=== PATIENT | female | born 1965 | race Caucasian/White ===

== ENCOUNTER 2017-04-15 16:16 | Observation (INO) | payer MEDICAID ==
[2017-04-15] MEDS ORDERED: Sodium Chloride 0.9% 2.5 ML Syringe FLUSH PRN (16:23)
[2017-04-15] MEDS ORDERED: Aspirin 81 MG Tab.Chew PO ONE (16:23)
[2017-04-15] MEDS ORDERED: Sodium Chloride 0.9% 10 ML Syringe FLUSH PRN (16:23)
--- NOTE | 2017-04-15 16:26 | EDM.PDOC ---
ED HPI GENERAL MEDICAL PROBLEM - General Chief Complaint: Chest Pain Stated Complaint: PT HAS CHEST PAINS Time Seen by Provider: 04/15/17 16:18 Source of Information: Reports: Patient History Limitations: Reports: No Limitations - History of Present Illness INITIAL COMMENTS - FREE TEXT/NARRATIVE: History of present illness: [] Patient was working at [employer] when she started having substernal chest pain around noon. She states the pain was nonradiating, and she had mild shortness of breath with it. She denies any dizziness, sweating, nausea, vomiting or abdominal pain. Patient did not take anything for pain but kept working. She states the pain has been continuous has not let up since noon. Review of systems: As per history of present illness and below otherwise all systems reviewed and negative. Past medical history: As per history of present illness and as reviewed below otherwise noncontributory. Surgical history: As per history of present illness and as reviewed below otherwise noncontributory. Social history: No reported history of drug or alcohol abuse. Family history: As per history of present illness and as reviewed below otherwise noncontributory. Physical exam: General: Well developed, well nourished in NAD HEENT: Atraumatic, normocephalic, pupils reactive, negative for conjunctival pallor or scleral icterus, mucous membranes moist, throat clear, neck supple, nontender, trachea midline. Lungs: Clear to auscultation, breath sounds equal bilaterally, chest nontender. Heart: S1S2, regular, negative for clicks, rubs, or JVD. Abdomen: Soft, nondistended, nontender. Negative for masses or hepatosplenomegaly. Negative for costovertebral tenderness. Pelvis: Stable nontender. Genitourinary: Deferred. Rectal: Deferred. Extremities: Atraumatic, negative for cords or calf pain. Neurovascular unremarkable. Neuro: Awake, alert, oriented. Cranial nerves II through XII unremarkable. Cerebellum unremarkable. Motor and sensory unremarkable throughout. Exam nonfocal. Diagnostics: [] Labs EKG and x-rays were checked no sign of acute DC, chest x-ray shows no signs of pneumonia, free air, masses. D-dimer and BNP are also negative which makes E. or CHF less likely. Therapeutics: [] Patient was given aspirin, nitroglycerin without relief of her chest pain. She was given morphine and her pain decreased however she had allergic reaction therefore it was stopped. She was given some Ativan for her anxiety and Pepcid for potential GI causes of her chest pain. She is also given Lopressor since she was hypotensive and tachycardic. Impression: [] Chest pain unknown etiology, Plan: [] Discuss his case with Dr. Carrillo, who also spoke to Dr. Bell cardiology, and they're both comfortable admitting her here in observing her for rule out and further treatment. Definitive disposition and diagnosis as appropriate pending reevaluation and review of above. Chest Pain Score (Numeric/FACES): 7 - Related Data Allergies Allergy/AdvReac Type Severity Reaction Status Date / Time No Known Allergies Allergy Verified 10/24/16 11:00 Home Meds: Home Meds amLODIPine [Norvasc] 5 mg PO DAILY 03/19/14 [History] Levothyroxine [Synthroid] 88 mcg PO ACBREAKFAST 10/24/16 [History] Levothyroxine [Synthroid] 100 mcg PO ACBREAKFAST 10/24/16 [History] Nitroglycerin [IJP: Nitroglycerin] 1 tab SL ASDIRECTED PRN 10/24/16 [History] atorvaSTATin [Lipitor] 10 mg PO BEDTIME 10/24/16 [History] Past Medical History - Past Health History Medical/Surgical History: Denies Medical/Surgical History Cardiovascular History: Reports: 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: - Past Surgical History Female Surgical History: Reports: Hysterectomy Social & Family History - Family History Family Medical History: Noncontributory - Tobacco Use Smoking Status *Q: Current Every Day Smoker Years of Tobacco use: 20 Packs/Tins Daily: 0.5 Used Tobacco, but Quit: No Second Hand Smoke Exposure: Yes - Caffeine Use Caffeine Use: Reports: None - Alcohol Use Days Per Week of Alcohol Use: 0 Number of Drinks Per Day: 0 Total Drinks Per Week: 0 - Recreational Drug Use Recreational Drug Use: No Drug Use in Last 12 Months: No ED ROS GENERAL - Review of Systems Review Of Systems: See Below (See history of present illness) ED EXAM, GENERAL - Physical Exam Exam: See Below (See history of present illness) Course - Vital Signs Last Recorded V/S: Last Vital Signs Temp 36.6 C 04/15/17 17:39 Pulse 112 H 05/15/17 18:12 Resp 16 04/15/17 17:39 BP 176/103 H 04/15/17 18:12 Pulse Ox 95 04/15/17 17:39 - Orders/Labs/Meds Orders: Active Orders 24 hr Category Date Time Status Patient Status [ADT] Stat ADT 04/15/17 18:24 Active EKG Documentation Completion [RC] STAT Care 04/15/17 16:22 Active Chest 1V Frontal [CR] Stat Exams 04/15/17 16:23 Taken Sodium Chloride 0.9% [Saline Flush] Med 04/15/17 16:23 Active 10 ml FLUSH ASDIRECTED PRN Sodium Chloride 0.9% [Saline Flush] Med 04/15/17 16:23 Active 2.5 ml FLUSH ASDIRECTED PRN Peripheral IV Insertion Adult [OM.PC] Stat Oth 04/15/17 16:23 Ordered Medication Orders Sodium Chloride (Saline Flush) 10 ml FLUSH ASDIRECTED PRN PRN Reason: Keep Vein Open Sodium Chloride (Saline Flush) 2.5 ml FLUSH ASDIRECTED PRN PRN Reason: Keep Vein Open Labs: Laboratory Tests 04/15/17 04/15/17 04/15/17 Range/Units 16:33 16:33 16:33 WBC 9.24 (4.0-11.0) K/uL RBC 4.50 (4.30-5.90) M/uL Hgb 14.3 (12.0-16.0) g/dL Hct 42.3 (36.0-46.0) % MCV 94.0 (80.0-98.0) fL MCH 31.8 (27.0-32.0) pg MCHC 33.8 (31.0-37.0) g/dL RDW Std Deviation 48.6 (28.0-62.0) fl RDW Coeff of Garrison 14 (11.0-15.0) % Plt Count 224 (150-400) K/uL MPV 10.00 (7.40-12.00) fL Neut % (Auto) 40.9 L (48.0-80.0) % Lymph % (Auto) 50.0 H (16.0-40.0) % [place] % (Auto) 7.8 (0.0-15.0) % Eos % (Auto) 1.0 (0.0-7.0) % Baso % (Auto) 0.3 (0.0-1.5) % Neut # (Auto) 3.8 (1.4-5.7) K/uL Lymph # (Auto) 4.6 H (0.6-2.4) K/uL [place] # (Auto) 0.7 (0.0-0.8) K/uL Eos # (Auto) 0.1 (0.0-0.7) K/uL Baso # (Auto) 0.0 (0.0-0.1) K/uL Nucleated RBC % 0.0 /100WBC Nucleated RBCs # 0 K/uL D-Dimer, Quantitative (0.0-0.52) mg/LFEU Sodium 139 (136-146) mmol/L Potassium 4.0 (3.5-5.1) mmol/L Chloride 107 (98-110) mmol/L Carbon Dioxide 18 L (21-31) mmol/L BUN 16 (6.0-23.0) mg/dL Creatinine 0.9 (0.6-1.5) mg/dL Est Cr Clr Drug Dosing 61.71 mL/min Estimated GFR (MDRD) > 60.0 ml/min Glucose 104 (60-110) mg/dL Calcium 9.6 (8.8-10.8) mg/dL Total Bilirubin 0.5 (0.1-1.5) mg/dL AST 21 (5-40) IU/L ALT 25 (8-54) IU/L Alkaline Phosphatase 55 (40-150) Troponin I < 0.10 (0.0-0.29) NG/ML B-Natriuretic Peptide (<100) PG/ML Total Protein 8.0 (6.0-8.0) g/dL Albumin 4.8 (3.5-5.0) g/dL Globulin 3.2 (2.0-3.5) g/dL Albumin/Globulin Ratio 1.5 (1.3-2.8) Lipase 72 (7-80) U/L 04/15/17 04/15/17 Range/Units 16:33 16:33 WBC (4.0-11.0) K/uL RBC (4.30-5.90) M/uL Hgb (12.0-16.0) g/dL Hct (36.0-46.0) % MCV (80.0-98.0) fL MCH (27.0-32.0) pg MCHC (31.0-37.0) g/dL RDW Std Deviation (28.0-62.0) fl RDW Coeff of Garrison (11.0-15.0) % Plt Count (150-400) K/uL MPV (7.40-12.00) fL Neut % (Auto) (48.0-80.0) % Lymph % (Auto) (16.0-40.0) % [place] % (Auto) (0.0-15.0) % Eos % (Auto) (0.0-7.0) % Baso % (Auto) (0.0-1.5) % Neut # (Auto) (1.4-5.7) K/uL Lymph # (Auto) (0.6-2.4) K/uL [place] # (Auto) (0.0-0.8) K/uL Eos # (Auto) (0.0-0.7) K/uL Baso # (Auto) (0.0-0.1) K/uL Nucleated RBC % /100WBC Nucleated RBCs # K/uL D-Dimer, Quantitative 0.29 (0.0-0.52) mg/LFEU Sodium (136-146) mmol/L Potassium (3.5-5.1) mmol/L Chloride (98-110) mmol/L Carbon Dioxide (21-31) mmol/L BUN (6.0-23.0) mg/dL Creatinine (0.6-1.5) mg/dL Est Cr Clr Drug Dosing mL/min Estimated GFR (MDRD) ml/min Glucose (60-110) mg/dL Calcium (8.8-10.8) mg/dL Total Bilirubin (0.1-1.5) mg/dL AST (5-40) IU/L ALT (8-54) IU/L Alkaline Phosphatase (40-150) Troponin I (0.0-0.29) NG/ML B-Natriuretic Peptide < 15 (<100) PG/ML Total Protein (6.0-8.0) g/dL Albumin (3.5-5.0) g/dL Globulin (2.0-3.5) g/dL Albumin/Globulin Ratio (1.3-2.8) Lipase (7-80) U/L Meds: Medications Generic Name Dose Route Start Last Admin Trade Name Sagrario PRN Reason Stop Dose Admin Sodium Chloride 10 ml 04/15/17 16:23 Saline Flush FLUSH ASDIRECTED PRN Keep Vein Open Sodium Chloride 2.5 ml 04/15/17 16:23 Saline Flush FLUSH ASDIRECTED PRN Keep Vein Open Discontinued Medications Generic Name Dose Route Start Last Admin Trade Name Sagrario PRN Reason Stop Dose Admin Aspirin 324 mg 04/15/17 16:23 04/15/17 16:45 Aspirin PO 04/15/17 16:24 324 mg ONETIME ONE Administration Al Hydroxide/Mg Hydroxide 15 0 ml 04/15/17 17:45 04/15/17 18:18 ml/ Lidocaine HCl 5 ml PO 04/15/17 17:46 1 each ONETIME ONE Administration Diphenhydramine HCl Confirm 04/15/17 17:22 04/15/17 17:30 Benadryl Administered 04/15/17 17:23 Not Given Dose 50 mg .ROUTE .STK-MED ONE Famotidine 20 mg 04/15/17 17:16 04/15/17 17:29 Pepcid IVPUSH 04/15/17 17:17 20 mg ONETIME ONE Administration Sodium Chloride 500 mls @ 999 mls/hr 04/15/17 17:17 04/15/17 17:17 Normal Saline IV 04/15/17 17:47 999 mls/hr .Bolus ONE Administration Lorazepam 0.5 mg 04/15/17 17:01 04/15/17 17:06 Ativan IVPUSH 04/15/17 17:02 0.5 mg ONETIME ONE Administration Metoprolol Tartrate 5 mg 04/15/17 16:30 04/15/17 16:55 Lopressor IVPUSH 04/15/17 16:41 Not Given Q5M MINI Metoprolol Tartrate 5 mg 04/15/17 18:12 04/15/17 18:12 Lopressor IVPUSH 04/15/17 18:13 5 mg ONETIME ONE Administration Morphine Sulfate 2 mg 04/15/17 17:01 04/15/17 17:12 Morphine IVPUSH 04/15/17 17:02 2 mg ONETIME ONE Administration Nitroglycerin 0.4 mg 04/15/17 16:23 04/15/17 17:01 Nitrostat SL 04/15/17 16:34 0.4 mg Q5M PRN Administration Chest Pain Departure - Departure Time of Disposition: 18:29 Disposition: Admitted As Inpatient 64 Condition: good Clinical Impression: Uncontrolled hypertension Chest pain Qualifiers: Chest pain type: unspecified Qualified Code(s): R07.9 - Chest pain, unspecified Forms: ED Department Discharge - My Orders Last 24 Hours: My Active Orders 04/15/17 16:22 EKG Documentation Completion [RC] STAT 04/15/17 16:23 Chest 1V Frontal [CR] Stat Sodium Chloride 0.9% [Saline Flush] 10 ml FLUSH ASDIRECTED PRN Sodium Chloride 0.9% [Saline Flush] 2.5 ml FLUSH ASDIRECTED PRN Peripheral IV Insertion Adult [OM.PC] Stat 04/15/17 18:24 Patient Status [ADT] Stat - Assessment/Plan Last 24 Hours: My Active Orders 04/15/17 16:22 EKG Documentation Completion [RC] STAT 04/15/17 16:23 Chest 1V Frontal [CR] Stat Sodium Chloride 0.9% [Saline Flush] 10 ml FLUSH ASDIRECTED PRN Sodium Chloride 0.9% [Saline Flush] 2.5 ml FLUSH ASDIRECTED PRN Peripheral IV Insertion Adult [OM.PC] Stat 04/15/17 18:24 Patient Status [ADT] Stat
[2017-04-15] MEDS: Nitroglycerin 0.4 MG Tab.SL SL PRN ×3 (16:45→17:01)
[2017-04-15] MEDS: Metoprolol Tartrate 5 MG/5 ML SDV IVPUSH SCH ×2 (16:51→16:55)
[2017-04-15] MEDS ORDERED: LORazepam 2 MG/ML MDV IVPUSH ONE (17:01)
[2017-04-15] MEDS ORDERED: Morphine 2 MG/ML Syringe IVPUSH ONE (17:01)
[2017-04-15 17:03] LABS: CHLORIDE,CL 107 mmol/L (98-110); SODIUM,NA 139 mmol/L (136-146)
[2017-04-15] MEDS ORDERED: Famotidine 20 MG/2 ML SDV IVPUSH ONE (17:16)
[2017-04-15] MEDS ORDERED: Sodium Chloride 0.9% 500 ML IV ONE (17:17)
[2017-04-15] MEDS ORDERED: diphenhydrAMINE 50 MG/ML SDV ONE (17:22)
[2017-04-15] MEDS ORDERED: Alum Hydrox/Mag Hydrox/Simeth 15 ML, Lidocaine 2% 5 ML PO ONE ×2 (17:45)
[2017-04-15] MEDS ORDERED: Metoprolol Tartrate 5 MG/5 ML SDV IVPUSH ONE (18:12)
--- NOTE | 2017-04-15 18:47 | PCM.HP ---
H&P History of Present Illness - General Date of Service: 04/15/17 Admit Problem/Dx: Admission Diagnosis/Problem Admission Diagnosis/Problem Chest pain Source of Information: Patient, Provider - History of Present Illness Initial Comments - Free Text/Narative: She was seen in the ED today for chest pain. 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 She felt right sided chest pain. It is worse with coughing. No known prior history of cardiac disease but a known history of HTN. She received aspirin in the ED. She did not have improvement with nitroglycerin. She had improvement with morphine but had itching with morphine. Her pain is now 2/10. Chest Pain Score (Numeric/FACES): 7 - Related Data Allergies/Adverse Reactions: Allergies Allergy/AdvReac Type Severity Reaction Status Date / Time No Known Allergies Allergy Verified 10/24/16 11:00 Home Medications: Home Meds amLODIPine [Norvasc] 5 mg PO DAILY 03/19/14 [History] Levothyroxine [Synthroid] 88 mcg PO ACBREAKFAST 10/24/16 [History] Levothyroxine [Synthroid] 100 mcg PO ACBREAKFAST 10/24/16 [History] Nitroglycerin [IJP: Nitroglycerin] 1 tab SL ASDIRECTED PRN 10/24/16 [History] atorvaSTATin [Lipitor] 10 mg PO BEDTIME 10/24/16 [History] Past Medical History - Past Health History Medical/Surgical History: Denies Medical/Surgical History Cardiovascular History: Reports: Hypertension. 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: Musculoskeletal History: Denies: Muscular Dystrophy, RA Neurological History: Denies: CVA, MS, Seizure Endocrine/Metabolic History: Denies: Diabetes, Type I, Diabetes, Type II Hematologic History: Denies: Anticoagulation Therapy, Bleeding Disorder Immunologic History: Denies: AIDS, HIV, Solid Organ Transplant Oncologic (Cancer) History: Reports: None - Past Surgical History Female Surgical History: Reports: Hysterectomy Social & Family History - Family History Family Medical History: Noncontributory - Tobacco Use Smoking Status *Q: Current Every Day Smoker Years of Tobacco use: 20 Packs/Tins Daily: 0.5 Used Tobacco, but Quit: No Second Hand Smoke Exposure: Yes - Caffeine Use Caffeine Use: Reports: None - Alcohol Use Days Per Week of Alcohol Use: 0 Number of Drinks Per Day: 0 Total Drinks Per Week: 0 Alcohol Use Comment: she drinks about three times per month - Recreational Drug Use Recreational Drug Use: No Drug Use in Last 12 Months: No H&P Review of Systems - Review of Systems: Review Of Systems: See Below General: Denies: Fever, Chills HEENT: Denies: Eye Pain, Sore Throat Pulmonary: Reports: Cough (chronic morning cough). Denies: Shortness of Breath Cardiovascular: Reports: Chest Pain. Denies: Palpitations, Edema Gastrointestinal: Reports: Other (no "heart burn" recently). Denies: Abdominal Pain, Anorexia, Black Stool, Bloody Stool, Hematemesis, Vomiting Genitourinary: Denies: Dysuria, Frequency, Burning, Hematuria Skin: Denies: Cyanosis, Jaundice Psychiatric: Denies: Confusion Neurological: Denies: Confusion Exam - Exam Exam: See Below - Vital Signs Vital Signs: Last Vital Signs Temp 97.8 F 04/15/17 17:39 Pulse 82 04/15/17 18:30 Resp 16 04/15/17 18:30 BP 157/92 H 04/15/17 18:30 Pulse Ox 95 04/15/17 18:30 Weight: 79.379 kg - Exam General: Alert, Oriented, Cooperative HEENT: EOMI, Mucosa Moist & Robin[place] Neck: Supple, Trachea Midline Lungs: Clear to Auscultation, Normal Respiratory Effort. No: Crackles, Rales, Rhonchi, Rub, Stridor, Wheezing Cardiovascular: Regular Rate, Regular Rhythm Abdomen: Soft. No: Tenderness (Female) Exam: Deferred Rectal (Female) Exam: Deferred Extremities: No: Edema Neurological: Cranial Nerves Intact, Normal Speech Neuro Extensive - Motor, Sensory, Reflexes: No: Facial palsy (L), Facial Palsy ( R), Hemeplagia (R), Hemeplagia (L) Psychiatric: Alert. No: Depressed, Agitated, Hallucinations, Withdrawal Symptoms - Patient Data Result Diagrams: 04/15/17 16:33 04/15/17 16:33 David Results last 24 hrs: EKG: NSR with ST depression anterior chest leads just less than 1 mm Hg. CXR: NAD *Q Meaningful Use (ADM) - VTE *Q VTE Criteria *Q: - Stroke *Q Stroke Criteria *Q: - AMI *Q AMI Criteria *Q: - Problem List (1) Hypertension SNOMED Code(s): 06772008 ICD Code: I10 - ESSENTIAL (PRIMARY) HYPERTENSION Status: Acute Current Visit: Yes (2) Chest pain SNOMED Code(s): 48377289 ICD Code: R07.9 - CHEST PAIN, UNSPECIFIED Status: Acute Current Visit: Yes Qualifiers: Chest pain type: unspecified Qualified Code(s): R07.9 - Chest pain, unspecified Problem List Initiated/Reviewed/Updated: Yes Orders Last 24hrs: Medication Orders Sodium Chloride (Saline Flush) 10 ml FLUSH ASDIRECTED PRN PRN Reason: Keep Vein Open Sodium Chloride (Saline Flush) 2.5 ml FLUSH ASDIRECTED PRN PRN Reason: Keep Vein Open Assessment/Plan Comment:: 04/15/2017 I reviewed her EKG with Dr Monahan, cardiology. He agrees with monitoring in our facility. I discussed the limitations here with the patient and she agrees to stay here realizing that we do not have emergent cardiac catheterization ability here. I suspect that this is chest wall pain. will monitor on observation. telemetry troponin levels EKG in am cardiology consult. Guillaume Carrillo MD
[2017-04-15] MEDS ORDERED: Acetaminophen/HYDROcodone 325-10 MG Tab PO PRN (18:52)
[2017-04-15] MEDS ORDERED: Ondansetron 4 MG Tab.DIS PO PRN (18:52)
[2017-04-15] MEDS ORDERED: Temazepam 15 MG Cap PO PRN (18:52)
[2017-04-15] MEDS ORDERED: Acetaminophen 325 MG Tab PO PRN (18:52)
[2017-04-15] MEDS ORDERED: Bisacodyl 5 MG Tab PO PRN (18:52)
[2017-04-15] MEDS ORDERED: Acetaminophen 500 MG Tab PO PRN (19:12)
[2017-04-15] MEDS: Metoprolol Succinate 50 MG Tab.ER PO SCH (20:10)
[2017-04-15] MEDS ORDERED: atorvaSTATin 10 MG Tab PO SCH (21:00)
[2017-04-16 08:01] VITALS: BP 133/77
[2017-04-16] MEDS ORDERED: Aspirin 81 MG Tab.Chew PO SCH (09:00)
--- NOTE | 2017-04-16 10:13 | CR ---
EXAM DATE: 04/15/17 PATIENT'S AGE: 52 Patient: KRZYSZTOF HUMPHREY Facility: [place], [place] Site . Site : [id number] Study: XRay Chest [id number]/15/2017 5:02:22 PM Ordering Physician: Doctor Mcdonough Final Report: INDICATION: pain, sob CHEST, ONE VIEW An AP radiograph of the chest was performed. Comparison: 10/24/2016. The lungs appear clear and no pleural effusions are identified. The cardiomediastinal silhouette and pulmonary vasculature appear normal, as do the visualized bones. IMPRESSION: No acute intrathoracic abnormality identified. NORMA SANTIZO MD [employer] [facility] [employer] Dictated by: Tim Santizo MD @ 04/15/2017 17:29:22 (Electronic Signature) Report Signed by Proxy. [facility]
[2017-04-16] MEDS: Metoprolol Succinate 50 MG Tab.ER PO SCH (10:49)
--- NOTE | 2017-04-16 12:06 | PCM.DCSUM1 ---
Discharge Summary - Hospital Course Brief History: she was admitted with chest pain. She was noted to have anterior chest wall tenderness. - Discharge Data Discharge Date: 04/16/17 Discharge Disposition: Home, Self-Care 01 Condition: Good - Discharge Diagnosis/Problem(s) (1) Hypertension SNOMED Code(s): 40985093 ICD Code: I10 - ESSENTIAL (PRIMARY) HYPERTENSION Status: Acute Current Visit: Yes (2) Chest pain SNOMED Code(s): 80544641 ICD Code: R07.9 - CHEST PAIN, UNSPECIFIED Status: Acute Current Visit: Yes Qualifiers: Chest pain type: unspecified Qualified Code(s): R07.9 - Chest pain, unspecified - Patient Summary/Data Consults: Consultations 04/15/17 18:52 Consult to Physician [CONS] Routine Hospital Course: initial EKG showed non diagnostic ST depression anterolaterally on the precordial leads. Repeat EKG the morning after admission showed no evidence of ischemia or injury serial troponins were normal Dr. Monahan consulted on patient and agreed with discharge home with outpatient follow up in his clinic. He has also scheduled a nuclear medicine cardiac stress test. She is discharged on her prior home meds and also norco 10/325 1 q 4 hours prn pain #20. I advised regarding risk of sedation, constipation and habit forming. - Discharge Plan Home Medications: Home Meds atorvaSTATin [Lipitor] 10 mg PO BEDTIME 10/24/16 [History] Levothyroxine 125 mcg PO ACBREAKFAST 04/16/17 [History] Nitroglycerin [IJP: Nitroglycerin] 0.4 mg SL ASDIRECTED PRN 04/16/17 [History] amLODIPine Besylate [Amlodipine Besylate] 5 mg PO DAILY 04/16/17 [History] Forms: ED Department Discharge Referrals: PCP,None [Primary Care Provider] - - Patient Data Vitals - Most Recent: Last Vital Signs Temp 98.6 F 04/16/17 08:00 Pulse 73 04/16/17 08:00 Resp 16 04/16/17 08:00 BP 133/77 04/16/17 08:00 Pulse Ox 92 L 04/16/17 08:00 Weight - Most Recent: 75.1 kg I&O - Last 24 hours: Intake & Output 04/15/17 04/16/17 04/16/17 22:59 06:59 14:59 Intake Total 300 Output Total 450 Balance -150 Lab Results - Last 24 hrs: Laboratory Results - last 24 hr 04/15/17 04/16/17 04/16/17 Range/Units 22:47 05:13 05:13 Hemoglobin A1c (0.0-6.0) % Troponin I < 0.10 < 0.10 (0.0-0.29) NG/ML Triglycerides 101 (10-190) mg/dL Cholesterol 191 (131-240) mg/dL LDL Cholesterol, Calc 112 (60-180) mg/dL VLDL Cholesterol 20 (5-55) mg/dL HDL Cholesterol 59 (40-80) mg/dL Cholesterol/HDL Ratio 3.2 L (3.3-6.0) 04/16/17 Range/Units 05:13 Hemoglobin A1c 6.1 H (0.0-6.0) % Troponin I (0.0-0.29) NG/ML Triglycerides (10-190) mg/dL Cholesterol (131-240) mg/dL LDL Cholesterol, Calc (60-180) mg/dL VLDL Cholesterol (5-55) mg/dL HDL Cholesterol (40-80) mg/dL Cholesterol/HDL Ratio (3.3-6.0) Med Orders - Current: Current Medications Acetaminophen (Tylenol Extra Strength) 500 mg PO Q4H PRN PRN Reason: Pain/Fever Hydrocodone Bitart/Acetaminophen ([place] 325-10 Mg) 1 tab PO Q3H PRN PRN Reason: Pain Amlodipine Besylate (Norvasc) 5 mg PO DAILY [facility] Aspirin (Aspirin) 81 mg PO DAILY [facility] Last Admin: 04/16/17 10:49 Dose: 81 mg Atorvastatin Calcium (Lipitor) 10 mg PO BEDTIME [facility] Last Admin: 04/16/17 03:24 Dose: Not Given Bisacodyl (Dulcolax) 5 mg PO DAILY PRN PRN Reason: Constipation Levothyroxine Sodium (Levothyroxine) 125 mcg PO ACBRK [facility] Metoprolol Succinate (Toprol Xl) 50 mg PO DAILY [facility] Last Admin: 04/16/17 10:49 Dose: Not Given Ondansetron HCl (Zofran Odt) 4 mg PO Q4H PRN PRN Reason: nausea, able to take PO Sodium Chloride (Saline Flush) 10 ml FLUSH ASDIRECTED PRN PRN Reason: Keep Vein Open Sodium Chloride (Saline Flush) 2.5 ml FLUSH ASDIRECTED PRN PRN Reason: Keep Vein Open Temazepam (Restoril) 15 mg PO BEDTIME PRN PRN Reason: Sleep Discontinued Medications Aspirin (Aspirin) 324 mg PO ONETIME ONE Stop: 04/15/17 16:24 Last Admin: 04/15/17 16:45 Dose: 324 mg Al Hydroxide/Mg Hydroxide 15 (ml/ Lidocaine HCl 5 ml) 0 ml PO ONETIME ONE Stop: 04/15/17 17:46 Last Admin: 04/15/17 18:18 Dose: 1 each Diphenhydramine HCl (Benadryl) Confirm Administered Dose 50 mg .ROUTE .STK-MED ONE Stop: 04/15/17 17:23 Last Admin: 04/15/17 17:30 Dose: Not Given Famotidine (Pepcid) 20 mg IVPUSH ONETIME ONE Stop: 04/15/17 17:17 Last Admin: 04/15/17 17:29 Dose: 20 mg Sodium Chloride (Normal Saline) 500 mls @ 999 mls/hr IV .Bolus ONE Stop: 04/15/17 17:47 Last Admin: 04/15/17 17:17 Dose: 999 mls/hr Lorazepam (Ativan) 0.5 mg IVPUSH ONETIME ONE Stop: 04/15/17 17:02 Last Admin: 04/15/17 17:06 Dose: 0.5 mg Metoprolol Tartrate (Lopressor) 5 mg IVPUSH Q5M MINI Stop: 04/15/17 16:41 Last Admin: 04/15/17 16:55 Dose: Not Given Metoprolol Tartrate (Lopressor) 5 mg IVPUSH ONETIME ONE Stop: 04/15/17 18:13 Last Admin: 04/15/17 18:12 Dose: 5 mg Morphine Sulfate (Morphine) 2 mg IVPUSH ONETIME ONE Stop: 04/15/17 17:02 Last Admin: 04/15/17 17:12 Dose: 2 mg Nitroglycerin (Nitrostat) 0.4 mg SL Q5M PRN PRN Reason: Chest Pain Stop: 04/15/17 16:34 Last Admin: 04/15/17 17:01 Dose: 0.4 mg *Q Meaningful Use (DIS) - VTE *Q VTE Criteria *Q: - Stroke *Q Stroke Criteria *Q: - AMI *Q AMI Criteria *Q:
--- NOTE | 2017-04-16 12:27 | CONS ---
DATE OF CONSULTATION: 04/16/2017 DATE OF : 1965 PRIMARY CARE PHYSICIAN: None PCP REASON FOR CONSULTATION: EKG changes, chest pain. HISTORY OF PRESENT ILLNESS: This is a 52-year-old female with history of hypertension, hypothyroidism, and dyslipidemia as well as a prediabetes presented to the hospital at this time because of the chest pain on the right side. 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 It was feeling like heaviness on that side and felt like lightheaded. No shortness of breath, no sweating, and no clamminess. She never experienced before and it lasted for 12:00 to 4:00 p.m. She was given nitroglycerin x3 as well as Ativan x1, GI cocktail, and morphine. She stated that Ativan does help as well as a nitroglycerin. She had a treadmill test before 2013. At that time, she was having the foot surgery and it seemed to be negative for any ischemia. Otherwise, she denies any fever, nausea, vomiting, abdominal pain, focal weakness, numbness, or weight loss. REVIEW OF SYSTEMS: A 12-point review of systems has been negative except as indicated in HPI. PAST MEDICAL HISTORY: Including hypertension, hyperlipidemia, prediabetes, active smoker. SOCIAL HISTORY: She is active smoker 1/2 pack per day, occasional drinking, no IV drug use. FAMILY HISTORY: Mother had a history of cancer. No history of CAD. ALLERGIES: She has no known drug allergies. MEDICATIONS: Currently, she is on Toprol-XL 50 mg once a day, Lipitor 10 mg once a day, aspirin 81 mg once a day. Home medications include amlodipine 5 mg once a day, levothyroxine 125 mcg once a day, and atorvastatin 10 mg once a day. PHYSICAL EXAMINATION: VITAL SIGNS: Blood pressure initially 144/84; going up to 176/103, currently 155/99; heart rate of 73; temperature 36.7; O2 saturation 94% on room air, respiration rate is 18. HEENT: No pallor. No jaundice. NECK: No JVD. HEART: Normal S1, S2. No murmur. CHEST: Her chest wall is tender on the right-sided chest wall and reproducible for pain. LUNGS: Clear. ABDOMEN: Soft, nontender. Bowel sounds present. No hepatosplenomegaly. EXTREMITIES: No edema. LABORATORY INVESTIGATION: CBC showed WBC of 9, hematocrit 42, platelet 224. D-dimer is negative. Sodium 139, potassium 4, chloride 107, bicarb 18, BUN 16, creatinine 0.9. Troponin is negative x3. BNP is negative. Her fasting lipid, triglyceride 101, total cholesterol 191, LDL 112, HDL 59, lipase 72. EKG in October 2016 showed sinus rhythm with ST abnormality in V3 to V6 and also EKG on April 15, 2017 showed sinus tachycardia with ST abnormality in V3 to V6 and EKG on April 16, 2017 is sinus rhythm, no ST changes. ASSESSMENT AND PLAN: This is a 52-year-old female with history of hypertension, hyperlipidemia, prediabetes, active smoking with chest pain. This seems to be very atypical for cardiac angina with a reproducible pain and with some EKG changes. When I compared the EKG changes seemed to be she has preexisting ST abnormalities in the past and it seemed to be dynamic where it could be from LV strain from her LVH; however, it was disappeared for the ST abnormality on the current. She also had a stress test done 3 years ago. There seemed to be no evidence of ischemia and troponin has been negative x3. So far, she ruled out for NV and I believe she can be discharged home as well as she would need to be scheduled for outpatient stress test especially exercise nuclear test and I will also order an echocardiogram. EDIS / JEB /[id number]
[2017-04-17] MEDS ORDERED: Levothyroxine 125 MCG Tab PO SCH (11:00)
[2017-04-17] MEDS ORDERED: amLODIPine 5 MG Tab PO SCH (11:00)
--- NOTE | 2017-04-17 13:45 | ECHO ---
EXAM DATE: 04/15/17 PATIENT'S AGE: 52 The echocardiogram report can be seen in this patient's EMR (Electronic Medical Record) in the Reports section. MARTHA
== END 2017-04-16 12:45 | disposition home or self-care (01) ==
LOC: MW.ED 16:16 → MW.ICU 18:24
PROVIDERS: ADMIT Family Medicine; ATTEND Family Medicine
DX: R07.9 Chest pain, unspecified (principal); R06.02 Shortness of breath; I10 Essential (primary) hypertension; F17.210 Nicotine dependence, cigarettes, uncomplicated; E78.5 Hyperlipidemia, unspecified
CPT/HCPCS: 36415; 71010; 80053; 80061; 83036; 83690; 83880; 84484; 85025; 85379; 93005; 93306; 96361; 96374; 96375; 99285; A9270; G0378; J2060; J2270; J7040

== ENCOUNTER 2017-10-31 15:49 | Emergency (ER) | payer SELFPAY ==
[2017-10-31] MEDS ORDERED: Sodium Chloride 0.9% 1,000 ML IV ONE (16:14)
[2017-10-31] MEDS ORDERED: Sodium Chloride 0.9% 2.5 ML Syringe FLUSH PRN (16:14)
[2017-10-31] MEDS ORDERED: Ondansetron 4 MG/2 ML SDV IVPUSH ONE (16:14)
[2017-10-31] MEDS ORDERED: Sodium Chloride 0.9% 10 ML Syringe FLUSH PRN (16:14)
--- NOTE | 2017-10-31 16:16 | EDM.PDOC ---
ED HPI GENERAL MEDICAL PROBLEM - General Chief Complaint: Respiratory Problem Stated Complaint: UNKNOWN Time Seen by Provider: 10/31/17 16:14 Source of Information: Reports: Patient History Limitations: Reports: No Limitations - History of Present Illness INITIAL COMMENTS - FREE TEXT/NARRATIVE: HISTORY AND PHYSICAL: []52-year-old female presents with three-day history of cough cold- like symptoms History of Present Illness: [] Review of Systems: As per history of present illness and below otherwise all systems reviewed and negative. Past medical history: As per history of present illness and as reviewed below otherwise noncontributory. Surgical history: As per history of present illness and as reviewed below otherwise noncontributory. Social history: No reported history of drug or alcohol abuse. Family history: As per history of present illness and as reviewed below otherwise noncontributory. Physical exam: Patient's alert and oriented answering questions appropriately has a stomach cough during examination. She is no shortness of breath with speaking HEENT: Atraumatic, normocehpalic, pupils reactive, negative for conjunctival pallor or scleral icterus, mucous membranes moist, throat clear, neck supple, nontender, trachea midline. Lungs: Clear to auscultation, breath sounds equal bilaterally, chest non tender. Shallow breath sounds Heart: S1S2, regular, negative for clicks, rubs, or JVD. Abdomen: Soft, nondistended, nontender. Negative for masses or hepatossplenmegaly. Negative for costovertebral tenderness. Pelvis: Stable nontender. Genitourinary: Deferred. Rectal: Deferred Extremities: Atraumatic, negative for cords or calf pain. Neurovascular unremarkable. Neuro: Awake, alert, oriented. Cranial nerves II through XII unremarkable. Cerebellum unremarkable. Motor and sensory unremarkable throughout. Exam nonfocal. Diagnostics: [CBC CMP chest x-ray influenza] Therapeutics: []1 L normal saline Zofran Impression: [] Plan: [] Definitive disposition and diagnosis as appropriate pending reevaluation and review of above. Onset: Gradual Duration: Day(s): (3) Location: Reports: Generalized Quality: Reports: Ache, Same as Previous Episode Severity: Moderate Chest Pain Score (Numeric/FACES): 7 - Related Data Allergies Allergy/AdvReac Type Severity Reaction Status Date / Time No Known Allergies Allergy Verified 10/24/16 11:00 Home Meds: Home Meds atorvaSTATin [Lipitor] 10 mg PO BEDTIME 10/24/16 [History] Acetaminophen/HYDROcodone [[place] 325-10 MG] 1 tab PO Q3H PRN #20 tablet [Rx] Aspirin 81 mg PO DAILY #100 tab.chew 04/16/17 [Rx] Levothyroxine 125 mcg PO ACBREAKFAST 04/16/17 [History] amLODIPine Besylate [Amlodipine Besylate] 5 mg PO DAILY 04/16/17 [History] Albuterol [Proventil HFA] 6.7 gm INH Q4H #1 inhaler 10/31/17 [Rx] Azithromycin [IJD: Azithromycin] 250 mg PO DAILY #6 tab 10/31/17 [Rx] methylPREDNISolone [Medrol] 4 mg PO ASDIRECTED #1 dosepk 10/31/17 [Rx] Past Medical History - Past Health History Medical/Surgical History: Denies Medical/Surgical History Cardiovascular History: Reports: Hypertension [employer] History: Reports: Endocrine/Metabolic History: Reports: Hypothyroidism Oncologic (Cancer) History: Reports: None - Infectious Disease History Infectious Disease History: Reports: Chicken Pox, Influenza, Measles, Mumps - Past Surgical History Cardiovascular Surgical History: Reports: None Female Surgical History: Reports: Hysterectomy Social & Family History - Family History Family Medical History: Noncontributory OBGYN: Reports: Oncologic: Reports: Cervix - Tobacco Use Smoking Status *Q: Current Every Day Smoker Years of Tobacco use: 30 Packs/Tins Daily: 0.5 Used Tobacco, but Quit: No Second Hand Smoke Exposure: Yes - Caffeine Use Caffeine Use: Reports: Coffee Other Caffeine Use: 3-4 cups/day - Alcohol Use Days Per Week of Alcohol Use: 0 Number of Drinks Per Day: 0 Total Drinks Per Week: 0 - Recreational Drug Use Recreational Drug Use: No Drug Use in Last 12 Months: No ED ROS GENERAL - Review of Systems Review Of Systems: ROS reveals no pertinent complaints other than HPI. ED EXAM, GENERAL - Physical Exam Exam: See Below (see dictation) Course - Vital Signs Last Recorded V/S: Last Vital Signs Temp 37.1 C 10/31/17 16:48 Pulse 89 10/31/17 16:48 Resp 16 10/31/17 16:48 BP 142/82 H 10/31/17 16:48 Pulse Ox 96 10/31/17 16:48 - Orders/Labs/Meds Orders: Active Orders 24 hr Category Date Time Status RT Aerosol Therapy [RC] ASDIRECTED Care 10/31/17 17:30 Ordered Chest 2V [CR] Stat Exams 10/31/17 16:14 Taken Albuterol/Ipratropium [DuoNeb 3.0-0.5 MG/3 ML] Med 10/31/17 17:30 Once 3 ml NEB ONETIME ONE Sodium Chloride 0.9% [Saline Flush] Med 10/31/17 16:14 Active 10 ml FLUSH ASDIRECTED PRN Sodium Chloride 0.9% [Saline Flush] Med 10/31/17 16:14 Active 2.5 ml FLUSH ASDIRECTED PRN methylPREDNISolone Sod Succ [Solu-MEDROL] Med 10/31/17 17:30 Once 125 mg IVPUSH ONETIME ONE Saline Lock Insert [OM.PC] Stat Oth 10/31/17 16:13 Ordered Medication Orders Albuterol/Ipratropium (Duoneb 3.0-0.5 Mg/3 Ml) 3 ml NEB ONETIME ONE Stop: 10/31/17 17:31 Methylprednisolone Sodium Succinate (Solu-Medrol) 125 mg IVPUSH ONETIME ONE Stop: 10/31/17 17:31 Sodium Chloride (Saline Flush) 10 ml FLUSH ASDIRECTED PRN PRN Reason: Keep Vein Open Last Admin: 10/31/17 16:37 Dose: 10 ml Sodium Chloride (Saline Flush) 2.5 ml FLUSH ASDIRECTED PRN PRN Reason: Keep Vein Open Last Admin: 10/31/17 16:38 Dose: 2.5 ml Labs: Laboratory Tests 10/31/17 10/31/17 Range/Units 16:22 16:22 WBC 10.99 (4.0-11.0) K/uL RBC 4.54 (4.30-5.90) M/uL Hgb 14.4 (12.0-16.0) g/dL Hct 42.4 (36.0-46.0) % MCV 93.4 (80.0-98.0) fL MCH 31.7 (27.0-32.0) pg MCHC 34.0 (31.0-37.0) g/dL RDW Std Deviation 48.9 (28.0-62.0) fl RDW Coeff of [place] 14 (11.0-15.0) % Plt Count 239 (150-400) K/uL MPV 10.50 (7.40-12.00) fL Neut % (Auto) 60.7 (48.0-80.0) % Lymph % (Auto) 28.9 (16.0-40.0) % Armstrong % (Auto) 9.0 (0.0-15.0) % Eos % (Auto) 1.1 (0.0-7.0) % Baso % (Auto) 0.3 (0.0-1.5) % Neut # (Auto) 6.7 H (1.4-5.7) K/uL Lymph # (Auto) 3.2 H (0.6-2.4) K/uL Armstrong # (Auto) 1.0 H (0.0-0.8) K/uL Eos # (Auto) 0.1 (0.0-0.7) K/uL Baso # (Auto) 0.0 (0.0-0.1) K/uL Nucleated RBC % 0.0 /100WBC Nucleated RBCs # 0 K/uL Sodium 138 (136-146) mmol/L Potassium 4.1 (3.5-5.1) mmol/L Chloride 106 (98-110) mmol/L Carbon Dioxide 22 (21-31) mmol/L BUN 12 (6.0-23.0) mg/dL Creatinine 0.8 (0.6-1.5) mg/dL Est Cr Clr Drug Dosing TNP Estimated GFR (MDRD) > 60.0 ml/min Glucose 103 (60-110) mg/dL Calcium 9.3 (8.8-10.8) mg/dL Total Bilirubin 0.5 (0.1-1.5) mg/dL AST 25 (5-40) IU/L ALT 34 (8-54) IU/L Alkaline Phosphatase 83 (40-150) Total Protein 7.9 (6.0-8.0) g/dL Albumin 4.3 (3.5-5.0) g/dL Globulin 3.6 H (2.0-3.5) g/dL Albumin/Globulin Ratio 1.2 L (1.3-2.8) Meds: Medications Generic Name Dose Route Start Last Admin Trade Name Freq PRN Reason Stop Dose Admin Albuterol/Ipratropium 3 ml 10/31/17 17:30 Duoneb 3.0-0.5 Mg/3 Ml NEB 10/31/17 17:31 ONETIME ONE Methylprednisolone Sodium Succinate 125 mg 10/31/17 17:30 Solu-Medrol IVPUSH 10/31/17 17:31 ONETIME ONE Sodium Chloride 10 ml 10/31/17 16:14 10/31/17 16:37 Saline Flush FLUSH 10 ml ASDIRECTED PRN Administration Keep Vein Open Sodium Chloride 2.5 ml 10/31/17 16:14 10/31/17 16:38 Saline Flush FLUSH 2.5 ml ASDIRECTED PRN Administration Keep Vein Open Discontinued Medications Generic Name Dose Route Start Last Admin Trade Name Freq PRN Reason Stop Dose Admin Sodium Chloride 1,000 mls @ 999 mls/hr 10/31/17 16:14 10/31/17 16:35 Normal Saline IV 10/31/17 17:14 999 mls/hr STAT ONE Administration Ondansetron HCl 4 mg 10/31/17 16:14 10/31/17 16:35 Zofran IVPUSH 10/31/17 16:15 4 mg ONETIME ONE Administration Departure - Departure Time of Disposition: 17:31 Disposition: Home, Self-Care 01 Condition: Good Clinical Impression: Bronchitis - Discharge Information Prescriptions: Albuterol [Proventil HFA] 6.7 gm INH Q4H #1 inhaler Azithromycin [IJD: Azithromycin] 250 mg PO DAILY #6 tab methylPREDNISolone [Medrol] 4 mg PO ASDIRECTED #1 dosepk Forms: ED Department Discharge Additional Instructions: The following information is given to patients seen in the emergency department who are being discharged to home. This information is to outline your options for follow-up care. We provide all patients seen in our emergency department with a follow-up referral. The need for follow-up, as well as the timing and circumstances, are variable depending upon the specifics of your emergency department visit. If you don't have a primary care physician on staff, we will provide you with a referral. We always advise you to contact your personal physician following an emergency department visit to inform them of the circumstance of the visit and for follow-up with them and/or the need for any referrals to a consulting specialist. The emergency department will also refer you to a specialist when appropriate. This referral assures that you have the opportunity for followup care with a specialist. All of these measure are taken in an effort to provide you with optimal care, which includes your followup. Under all circumstances we always encourage you to contact your private physician who remains a resource for coordinating your care. When calling for followup care, please make the office aware that this follow-up is from your recent emergency room visit. If for any reason you are refused follow-up, please contact the [facility] emergency department at and asked to speak to the emergency department charge nurse. Please follow-up with your primary care provider in the next 2-3 days He was found to have bronchitis while in the emergency department Prescriptions were sent to your pharmacy for #1 Proventil inhaler #2 Medrol Dosepak No. 3 azithromycin - My Orders Last 24 Hours: My Active Orders 10/31/17 16:13 Saline Lock Insert [OM.PC] Stat 10/31/17 16:14 Chest 2V [CR] Stat Sodium Chloride 0.9% [Saline Flush] 10 ml FLUSH ASDIRECTED PRN Sodium Chloride 0.9% [Saline Flush] 2.5 ml FLUSH ASDIRECTED PRN 10/31/17 17:30 RT Aerosol Therapy [RC] ASDIRECTED Albuterol/Ipratropium [DuoNeb 3.0-0.5 MG/3 ML] 3 ml NEB ONETIME ONE methylPREDNISolone Sod Succ [Solu-MEDROL] 125 mg IVPUSH ONETIME ONE - Assessment/Plan Last 24 Hours: My Active Orders 10/31/17 16:13 Saline Lock Insert [OM.PC] Stat 10/31/17 16:14 Chest 2V [CR] Stat Sodium Chloride 0.9% [Saline Flush] 10 ml FLUSH ASDIRECTED PRN Sodium Chloride 0.9% [Saline Flush] 2.5 ml FLUSH ASDIRECTED PRN 10/31/17 17:30 RT Aerosol Therapy [RC] ASDIRECTED Albuterol/Ipratropium [DuoNeb 3.0-0.5 MG/3 ML] 3 ml NEB ONETIME ONE methylPREDNISolone Sod Succ [Solu-MEDROL] 125 mg IVPUSH ONETIME ONE
[2017-10-31 16:48] LABS: CHLORIDE,CL 106 mmol/L (98-110); SODIUM,NA 138 mmol/L (136-146)
[2017-10-31 16:50] VITALS: BP 142/82
[2017-10-31] MEDS ORDERED: methylPREDNISolone Sodium Succinate 125 MG/2 ML SDV IVPUSH ONE (17:30)
[2017-10-31] MEDS ORDERED: Albuterol/Ipratropium 3.0-0.5 MG/3 ML Neb Soln NEB ONE (17:30)
--- NOTE | 2017-11-01 13:20 | CR ---
EXAM DATE: 10/31/17 PATIENT'S AGE: 52 Patient: KRZYSZTOF HUMPHREY Facility: [place], [place] Site . Site : 1965 Study: XRay Chest [id number]/30/2017 5:15:45 PM Ordering Physician: Doctor Mcdonough Final Report: INDICATION: cough, congestion, fever, headaches - all x3 days TECHNIQUE: Chest 2 views COMPARISON: April 15, 2017 FINDINGS: Cardiovascular and mediastinum: Heart size and vasculature are normal in caliber and appearance. Mediastinum is within normal limits. Lungs and pleural spaces: No focal consolidation. No sign of pleural effusion. No pneumothorax. Bones and soft tissues: No significant findings. IMPRESSION: No acute cardiopulmonary disease Dictated by Nate Marks MD @ 10/31/2017 5:30:00 PM Dictated by: Nate Marks MD @ 10/31/2017 17:30:06 (Electronic Signature) Report Signed by Proxy. MARTHA
== END 2017-10-31 18:20 | disposition home or self-care (01) ==
LOC: MW.ED 15:49
DX: J40 Bronchitis, not specified as acute or chronic (principal); I10 Essential (primary) hypertension; E03.9 Hypothyroidism, unspecified; F17.210 Nicotine dependence, cigarettes, uncomplicated; Z79.82 Long term (current) use of aspirin; Z79.2 Long term (current) use of antibiotics; Z79.899 Other long term (current) drug therapy
CPT/HCPCS: 36415; 71020; 80053; 85025; 87804; 94640; 96361; 96374; 96375; 99284; J2405; J2930; J7040

== ENCOUNTER 2018-02-20 22:29 | Emergency (ER) | payer MEDICAID ==
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
[2018-02-20] MEDS ORDERED: Acetaminophen 500 MG Tab PO STA (23:30)
[2018-02-21 04:15] VITALS: BP 135/80
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
== END 2018-02-20 23:35 | disposition home or self-care (01) ==
LOC: MW.ED 22:29
DX: S06.0X9A Concussion with loss of consciousness of unspecified duration, initial encounter (principal); E03.9 Hypothyroidism, unspecified; I10 Essential (primary) hypertension; F17.210 Nicotine dependence, cigarettes, uncomplicated; Z79.899 Other long term (current) drug therapy; Z79.82 Long term (current) use of aspirin; Y04.0XXA Assault by unarmed brawl or fight, initial encounter
CPT/HCPCS: 70450; 99284; A9270; 99283

== ENCOUNTER 2018-05-27 23:24 | Emergency (ER) | payer MEDICAID ==
--- NOTE | 2018-05-27 23:48 | EDM.PDOC ---
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 She says the blood was not from her rectum and she did not have a bowel movement and she is concerned is from her vagina. She has not had to use a pad and it was only the one time that this occurred this evening. She has no abdominal pain no flank pain no other systemic complaints. Patient is status post a hysterectomy approximately 3 years ago and has had no issues since then. Review of systems: As per history of present illness and below otherwise all systems reviewed and negative. Past medical history: As per history of present illness and as reviewed below otherwise noncontributory. Surgical history: As per history of present illness and as reviewed below otherwise noncontributory. Social history: No reported history of drug or alcohol abuse. Family history: As per history of present illness and as reviewed below otherwise noncontributory. Physical exam: General: Well-developed well-nourished female who is nontoxic and vital signs are reviewed by me HEENT: Atraumatic, normocephalic, negative for conjunctival pallor or scleral icterus, mucous membranes moist, throat clear, neck supple, nontender, trachea midline. Lungs: Clear to auscultation, breath sounds equal bilaterally, chest nontender. Heart: S1S2, regular rate and rhythm no overt murmurs Abdomen: Soft, nondistended, nontender. Negative for masses or hepatosplenomegaly. Negative for costovertebral tenderness. Pelvis: Stable nontender. Genitourinary: Deferred. Rectal: Deferred. Extremities: Atraumatic, negative for cords or calf pain. Neurovascular unremarkable. Neuro: Awake, alert, oriented. Cranial nerves II through XII unremarkable. Cerebellum unremarkable. Motor and sensory unremarkable throughout. Exam nonfocal. Diagnostics: UA Therapeutics: [] Discussed with the patient that postmenopausal bleeding is a clinic/outpatient evaluation and in light of the fact that she has only had a small amount of blood on the toilet paper, she has not used any pads, and she has no other systemic complaints with it, she could call Marlen the nurse practitioner tomorrow and schedule a follow-up appointment for this. I told her I would check her urine to see whether or not a urinary tract infection may have caused the bleeding in the urine. Impression: Postmenopausal vaginal bleeding minor stable Definitive disposition and diagnosis as appropriate pending reevaluation and review of above. - Related Data Allergies Allergy/AdvReac Type Severity Reaction Status Date / Time morphine Allergy Itching Verified 05/27/18 23:41 Home Meds: Home Meds atorvaSTATin [Lipitor] 20 mg PO BEDTIME 10/24/16 [History] Aspirin 81 mg PO DAILY #100 tab.chew 04/16/17 [Rx] Levothyroxine 125 mcg PO ACBREAKFAST 04/16/17 [History] amLODIPine Besylate [Amlodipine Besylate] 5 mg PO DAILY 04/16/17 [History] Albuterol [Proventil HFA] 6.7 gm INH Q4H PRN 05/14/18 [History] Nitroglycerin 1 tab SL ASDIRECTED PRN 05/14/18 [History] Past Medical History - Past Health History Medical/Surgical History: Denies Medical/Surgical History HEENT History: Reports: None Cardiovascular History: Reports: Hypertension Other Cardiovascular History: Heart Attack 2014 Respiratory History: Reports: None Gastrointestinal History: Reports: None Genitourinary History: Reports: None 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: Musculoskeletal History: Reports: None Neurological History: Reports: None Psychiatric History: Reports: None Endocrine/Metabolic History: Reports: Hypothyroidism Hematologic History: Reports: None Oncologic (Cancer) History: Reports: None Dermatologic History: Reports: None - Infectious Disease History Infectious Disease History: Reports: Chicken Pox - Past Surgical History Head Surgeries/Procedures: Reports: None Cardiovascular Surgical History: Reports: None Female Surgical History: Reports: Hysterectomy Endocrine Surgical History: Reports: None Social & Family History - Family History Family Medical History: Noncontributory OBGYN: Reports: Oncologic: Reports: Cervix - Tobacco Use Smoking Status *Q: Current Every Day Smoker Years of Tobacco use: 30 Packs/Tins Daily: 0.5 - Caffeine Use Caffeine Use: Reports: Coffee Other Caffeine Use: 3-4 cups/day - Recreational Drug Use Recreational Drug Use: No ED ROS GENERAL - Review of Systems Review Of Systems: ROS reveals no pertinent complaints other than HPI. ED EXAM, GENERAL - Physical Exam Exam: See Below (See dictation) Course - Vital Signs Last Recorded V/S: Last Vital Signs Temp 36.2 C 05/27/18 23:34 Pulse 77 05/27/18 23:34 Resp 20 05/27/18 23:34 BP 144/86 H 05/27/18 23:34 Pulse Ox 96 05/27/18 23:34 - Orders/Labs/Meds Orders: Active Orders 24 hr Category Date Time Status UA W/MICROSCOPIC [URIN] Stat Lab 05/27/18 23:46 Ordered Labs: Laboratory Tests 05/27/18 Range/Units 23:46 Urine Color YELLOW Urine Appearance CLEAR Urine pH 6.0 (5.0-8.0) Ur Specific [place] <= 1.005 (1.001-1.035) Urine Protein NEGATIVE (NEGATIVE) mg/dL Urine Glucose (UA) NEGATIVE (NEGATIVE) mg/dL Urine Ketones NEGATIVE (NEGATIVE) mg/dL Urine Occult Blood TRACE-LYSED (NEGATIVE) Urine Nitrite NEGATIVE (NEGATIVE) Urine Bilirubin NEGATIVE (NEGATIVE) Urine Urobilinogen 0.2 (<2.0) EU/dL Ur Leukocyte Esterase NEGATIVE (NEGATIVE) Urine RBC NONE SEEN (0-2/HPF) Urine WBC 0-1 (0-5/HPF) Ur Epithelial Cells RARE (NONE-FEW) Urine Bacteria RARE (NEGATIVE) Departure - Departure Time of Disposition: 00:16 Disposition: Home, Self-Care 01 Condition: Good Clinical Impression: Postmenopausal bleeding - Discharge Information Referrals: Juan Olivarez MD [Primary Care Provider] - Forms: ED Department Discharge Additional Instructions: The following information is given to patients seen in the emergency department who are being discharged to home. This information is to outline your options for follow-up care. We provide all patients seen in our emergency department with a follow-up referral. The need for follow-up, as well as the timing and circumstances, are variable depending upon the specifics of your emergency department visit. If you don't have a primary care physician on staff, we will provide you with a referral. We always advise you to contact your personal physician following an emergency department visit to inform them of the circumstance of the visit and for follow-up with them and/or the need for any referrals to a consulting specialist. The emergency department will also refer you to a specialist when appropriate. This referral assures that you have the opportunity for followup care with a specialist. All of these measure are taken in an effort to provide you with optimal care, which includes your followup. Under all circumstances we always encourage you to contact your private physician who remains a resource for coordinating your care. When calling for followup care, please make the office aware that this follow-up is from your recent emergency room visit. If for any reason you are refused follow-up, please contact the [facility] emergency department at and ask to speak to the emergency department charge nurse. [facility] Primary care- Internal Medicine and [address], [place] [address] [facility] Primary care-Women's Health [address] [address] Push hydration and please call the clinic first thing in the morning to schedule a follow-up appointment with Dr Olivarez as we discussed or you may also follow-up in our [facility] [place] [facility].. Return to ER as needed and as discussed - My Orders Last 24 Hours: My Active Orders 05/27/18 23:46 UA W/MICROSCOPIC [URIN] Stat - Assessment/Plan Last 24 Hours: My Active Orders 05/27/18 23:46 UA W/MICROSCOPIC [URIN] Stat
[2018-05-28 00:02] VITALS: BP 144/86
== END 2018-05-28 00:20 | disposition home or self-care (01) ==
LOC: MW.ED 23:24
DX: N95.0 Postmenopausal bleeding (principal); I10 Essential (primary) hypertension; F17.210 Nicotine dependence, cigarettes, uncomplicated; E03.9 Hypothyroidism, unspecified; Z79.82 Long term (current) use of aspirin; Z79.899 Other long term (current) drug therapy; Z88.5 Allergy status to narcotic agent
CPT/HCPCS: 81001; 99283

== ENCOUNTER 2019-05-15 17:44 | Emergency (ER) | payer MEDICAID ==
[2019-05-15] MEDS ORDERED: Sodium Chloride 0.9% 2.5 ML Syringe FLUSH PRN (17:52)
[2019-05-15] MEDS ORDERED: Sodium Chloride 0.9% 10 ML Syringe FLUSH PRN (17:52)
[2019-05-15] MEDS ORDERED: HYDROmorphone 2 MG/ML Syringe IVPUSH ONE (17:54)
[2019-05-15] MEDS ORDERED: Ondansetron 4 MG/2 ML SDV IVPUSH ONE (17:54)
[2019-05-15] MEDS ORDERED: Morphine 4 MG/ML Syringe IVPUSH ONE (17:54)
--- NOTE | 2019-05-15 17:54 | EDM.PDOC ---
ED HPI GENERAL MEDICAL PROBLEM - General Stated Complaint: FELL AND HIT SIDE Time Seen by Provider: 05/15/19 17:46 Source of Information: Reports: Patient History Limitations: Reports: No Limitations - History of Present Illness INITIAL COMMENTS - FREE TEXT/NARRATIVE: History of present illness: []Patient was standing in her room this morning and lost her balance and hit her right side against some furniture. She's been taking Aleve at home but the pain has been worsening. She now feels short of breath unable to tolerate the pain. She denies any vomiting or any other injuries. Review of systems: As per history of present illness and below otherwise all systems reviewed and negative. Past medical history: As per history of present illness and as reviewed below otherwise noncontributory. Surgical history: As per history of present illness and as reviewed below otherwise noncontributory. Social history: No reported history of drug or alcohol abuse. Family history: As per history of present illness and as reviewed below otherwise noncontributory. Physical exam: General: Well developed, well nourished in NAD HEENT: Atraumatic, normocephalic, pupils reactive, negative for conjunctival pallor or scleral icterus, mucous membranes moist, throat clear, neck supple, nontender, trachea midline. Lungs: Clear to auscultation, breath sounds equal bilaterally, chest tender in right lower ribs, no ecchymosis or crepitance Heart: S1S2, regular, negative for clicks, rubs, or JVD. Abdomen: NABS, Soft, nondistended, tender right upper quadrant, no rebound or guarding. Negative for masses or hepatosplenomegaly. Negative for costovertebral tenderness. Pelvis: Stable nontender. Genitourinary: Deferred. Rectal: Deferred. Extremities: Atraumatic, negative for cords or calf pain. Neurovascular unremarkable. Neuro: Awake, alert, oriented. Cranial nerves II through XII unremarkable. Cerebellum unremarkable. Motor and sensory unremarkable throughout. Exam nonfocal. Skin:warm and dry Diagnostics: CBC, chemistry, lipase, chest [id number] for fracture, effusion or pneumothorax on the CT abdomen pelvis-neg for acute trauma 2.3 cm infrarenal abdominal aortic aneurysm Therapeutics: Dilaudid, Zofran ED Course: stable Impression: Fall, right chest wall can contusion Prescriptions: motrin Plan: Take meds as directed, follow up with your primary care physician, return to ER if symptoms worsen or change. Definitive disposition and diagnosis as appropriate pending reevaluation and review of above. Right Chest Pain Score (Numeric/FACES): 9 - Related Data Allergies Allergy/AdvReac Type Severity Reaction Status Date / Time morphine Allergy Itching Verified 05/15/19 17:59 Home Meds: Home Meds atorvaSTATin [Lipitor] 20 mg PO BEDTIME 10/24/16 [History] Aspirin 81 mg PO DAILY #100 tab.chew 04/16/17 [Rx] Levothyroxine 125 mcg PO ACBREAKFAST 04/16/17 [History] amLODIPine Besylate [Amlodipine Besylate] 5 mg PO DAILY 04/16/17 [History] Albuterol [Proventil HFA] 6.7 gm INH Q4H PRN 05/14/18 [History] Nitroglycerin 1 tab SL ASDIRECTED PRN 05/14/18 [History] Ibuprofen [Motrin] 800 mg PO BIDM PRN #20 tab 05/15/19 [Rx] Past Medical History - Past Health History Medical/Surgical History: Denies Medical/Surgical History HEENT History: Reports: None Cardiovascular History: Reports: Hypertension Other Cardiovascular History: Heart Attack 2014 Respiratory History: Reports: None Gastrointestinal History: Reports: None Genitourinary History: Reports: None 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: Musculoskeletal History: Reports: None Neurological History: Reports: None Psychiatric History: Reports: None Endocrine/Metabolic History: Reports: Hypothyroidism Hematologic History: Reports: None Oncologic (Cancer) History: Reports: None Dermatologic History: Reports: None - Infectious Disease History Infectious Disease History: Reports: Chicken Pox - Past Surgical History Female Surgical History: Reports: Hysterectomy Social & Family History - Family History Family Medical History: Noncontributory OBGYN: Reports: Oncologic: Reports: Cervix - Caffeine Use Caffeine Use: Reports: Coffee Other Caffeine Use: 3-4 cups/day Review of Systems - Review of Systems Review Of Systems: ROS reveals no pertinent complaints other than HPI. ED EXAM, GENERAL - Physical Exam Exam: See Below (See history of present illness) Course - Vital Signs Last Recorded V/S: Last Vital Signs Temp 97.5 F 05/15/19 17:59 Pulse 83 05/15/19 17:59 Resp 18 05/15/19 17:59 BP 160/101 H 05/15/19 17:59 Pulse Ox 95 05/15/19 17:59 - Orders/Labs/Meds Orders: Active Orders 24 hr Category Date Time Status Patient Status [ADT] Stat ADT 05/15/19 18:25 Active Abdomen Pelvis w Cont [CT] Stat Exams 05/15/19 18:04 Taken Sodium Chloride 0.9% [Saline Flush] Med 05/15/19 17:52 Active 10 ml FLUSH ASDIRECTED PRN Sodium Chloride 0.9% [Saline Flush] Med 05/15/19 17:52 Active 2.5 ml FLUSH ASDIRECTED PRN Saline Lock Insert [OM.PC] Stat Oth 05/15/19 17:51 Ordered Medication Orders Sodium Chloride (Saline Flush) 10 ml FLUSH ASDIRECTED PRN PRN Reason: Keep Vein Open Sodium Chloride (Saline Flush) 2.5 ml FLUSH ASDIRECTED PRN PRN Reason: Keep Vein Open Labs: Laboratory Tests 05/15/19 05/15/19 Range/Units 17:56 17:56 WBC 10.77 (4.0-11.0) K/uL RBC 4.80 (4.30-5.90) M/uL Hgb 15.3 (12.0-16.0) g/dL Hct 44.8 (36.0-46.0) % MCV 93.3 (80.0-98.0) fL MCH 31.9 (27.0-32.0) pg MCHC 34.2 (31.0-37.0) g/dL RDW Std Deviation 47.2 (28.0-62.0) fl RDW Coeff of [place] 14 (11.0-15.0) % Plt Count 263 (150-400) K/uL MPV 10.70 (7.40-12.00) fL Neut % (Auto) 46.9 L (48.0-80.0) % Lymph % (Auto) 46.1 H (16.0-40.0) % [place] % (Auto) 5.8 (0.0-15.0) % Eos % (Auto) 0.8 (0.0-7.0) % Baso % (Auto) 0.4 (0.0-1.5) % Neut # (Auto) 5.1 (1.4-5.7) K/uL Lymph # (Auto) 5.0 H (0.6-2.4) K/uL [place] # (Auto) 0.6 (0.0-0.8) K/uL Eos # (Auto) 0.1 (0.0-0.7) K/uL Baso # (Auto) 0.0 (0.0-0.1) K/uL Nucleated RBC % 0.0 /100WBC Nucleated RBCs # 0 K/uL Sodium 139 (136-145) mmol/L Potassium 4.2 (3.5-5.1) mmol/L Chloride 104 (98-107) mmol/L Carbon Dioxide 25.0 (21.0-32.0) mmol/L BUN 15 (7.0-18.0) mg/dL Creatinine 1.0 (0.6-1.0) mg/dL Est Cr Clr Drug Dosing 54.24 mL/min Estimated GFR (MDRD) 57.4 ml/min Glucose 114 H (74-106) mg/dL Calcium 8.9 (8.5-10.1) mg/dL Total Bilirubin 0.5 (0.2-1.0) mg/dL AST 12 L (15-37) IU/L ALT 23 (14-63) IU/L Alkaline Phosphatase 62 (46-116) U/L Total Protein 7.9 (6.4-8.2) g/dL Albumin 4.3 (3.4-5.0) g/dL Globulin 3.6 (2.6-4.0) g/dL Albumin/Globulin Ratio 1.2 (0.9-1.6) Lipase 308 (73-393) U/L Meds: Medications Generic Name Dose Route Start Last Admin Trade Name Freq PRN Reason Stop Dose Admin Sodium Chloride 10 ml 05/15/19 17:52 Saline Flush FLUSH ASDIRECTED PRN Keep Vein Open Sodium Chloride 2.5 ml 05/15/19 17:52 Saline Flush FLUSH ASDIRECTED PRN Keep Vein Open Discontinued Medications Generic Name Dose Route Start Last Admin Trade Name Freq PRN Reason Stop Dose Admin Hydromorphone HCl 0.5 mg 05/15/19 17:54 05/15/19 18:44 Dilaudid IVPUSH 05/15/19 17:55 Not Given ONETIME ONE Sodium Chloride 1,000 mls @ 999 mls/hr 05/15/19 17:56 05/15/19 18:43 Normal Saline IV 05/15/19 18:56 999 mls/hr .Bolus ONE Administration Iopamidol 90 ml 05/15/19 18:32 05/15/19 18:33 Isovue Multipack-370 (76%) IVPUSH 05/15/19 18:33 90 ml ONETIME STA Administration Morphine Sulfate 4 mg 05/15/19 17:54 05/15/19 18:44 Morphine IVPUSH 05/15/19 17:55 Not Given ONETIME ONE Ondansetron HCl 4 mg 05/15/19 17:54 05/15/19 18:44 Zofran IVPUSH 05/15/19 17:55 Not Given ONETIME ONE Departure - Departure Time of Disposition: 19:14 Disposition: Home, Self-Care 01 Condition: Good Clinical Impression: Fall Qualifiers: Encounter type: initial encounter Qualified Code(s): W19.XXXA - Unspecified fall, initial encounter Contusion of rib on right side Qualifiers: Encounter type: initial encounter Qualified Code(s): S20.211A - Contusion of right front wall of thorax, initial encounter - Discharge Information *PRESCRIPTION DRUG MONITORING PROGRAM REVIEWED*: No *COPY OF PRESCRIPTION DRUG MONITORING REPORT IN PATIENT ESTEFANIA: No Prescriptions: Ibuprofen [Motrin] 800 mg PO BIDM PRN #20 tab PRN Reason: Pain Referrals: PCP,None [Primary Care Provider] - Additional Instructions: The following information is given to patients seen in the emergency department who are being discharged to home. This information is to outline your options for follow-up care. We provide all patients seen in our emergency department with a follow-up referral. The need for follow-up, as well as the timing and circumstances, are variable depending upon the specifics of your emergency department visit. If you don't have a primary care physician on staff, we will provide you with a referral. We always advise you to contact your personal physician following an emergency department visit to inform them of the circumstance of the visit and for follow-up with them and/or the need for any referrals to a consulting specialist. The emergency department will also refer you to a specialist when appropriate. This referral assures that you have the opportunity for follow-up care with a specialist. All of these measure are taken in an effort to provide you with optimal care, which includes your follow-up. Under all circumstances we always encourage you to contact your private physician who remains a resource for coordinating your care. When calling for follow-up care, please make the office aware that this follow-up is from your recent emergency room visit. If for any reason you are refused follow-up, please contact the [facility] Emergency Department at and asked to speak to the emergency department charge nurse. Take meds as directed, follow up with your primary care physician, return to ER if symptoms worsen or change. [facility] Primary Care [address] [place] [address] - My Orders Last 24 Hours: My Active Orders 05/15/19 17:51 Saline Lock Insert [OM.PC] Stat 05/15/19 17:52 Sodium Chloride 0.9% [Saline Flush] 10 ml FLUSH ASDIRECTED PRN Sodium Chloride 0.9% [Saline Flush] 2.5 ml FLUSH ASDIRECTED PRN 05/15/19 18:04 Abdomen Pelvis w Cont [CT] Stat 05/15/19 18:25 Patient Status [ADT] Stat - Assessment/Plan Last 24 Hours: My Active Orders 05/15/19 17:51 Saline Lock Insert [OM.PC] Stat 05/15/19 17:52 Sodium Chloride 0.9% [Saline Flush] 10 ml FLUSH ASDIRECTED PRN Sodium Chloride 0.9% [Saline Flush] 2.5 ml FLUSH ASDIRECTED PRN 05/15/19 18:04 Abdomen Pelvis w Cont [CT] Stat 05/15/19 18:25 Patient Status [ADT] Stat
[2019-05-15] MEDS ORDERED: Sodium Chloride 0.9% 1,000 ML IV ONE (17:56)
[2019-05-15 18:02] VITALS: BP 160/101
--- NOTE | 2019-05-15 18:17 | CR ---
INDICATION: fall, rt side pain TECHNIQUE: Chest 1 view. COMPARISON: 10/31/17 FINDINGS: Cardiovascular and mediastinum: Heart size and vasculature are normal in caliber and appearance. Mediastinum is within normal limits. Lungs and pleural space: Lungs are clear. No sign of infiltrate or mass. No sign of pleural effusion. No pneumothorax. Bones and soft tissues: No significant findings. IMPRESSION: Unremarkable chest. Dictated by: Bobby Tan MD @ 05/15/2019 18:15:19 (Electronically Signed)
[2019-05-15] MEDS ORDERED: Iopamidol 755 MG/ML 500 ML Multipack Bottle IVPUSH STA (18:32)
--- NOTE | 2019-05-15 19:14 | CT ---
INDICATION: Fell on right side, pain TECHNIQUE: CT abdomen and pelvis acquired with 90 cc Isovue 370 IV contrast. COMPARISON: June 09, 2014 FINDINGS: Lower chest: Unremarkable. Liver: Unremarkable. Spleen: Unremarkable. Pancreas: Unremarkable. Gallbladder and bile ducts: Unremarkable. Adrenal glands: Unremarkable. Kidneys: Unremarkable. GI tract: Unremarkable. Appendix is normal. Vascular structures: Moderate atherosclerotic disease. 2.3 cm infrarenal abdominal aortic aneurysm, previously 2.0 cm. Lymph nodes: Unremarkable. Miscellaneous: Unremarkable. No free air or significant free fluid. Pelvic Organs: Status post hysterectomy. Bones: Unremarkable for age. IMPRESSION: No acute abnormality within the abdomen or pelvis. 2.3 cm infrarenal abdominal aortic aneurysm. Status post hysterectomy. Please note that all CT scans at this facility use dose modulation, iterative reconstruction, and/or weight-based dosing when appropriate to reduce radiation dose to as low as reasonably achievable. Dictated by Pilar Prakash MD @ May 15 2019 6:41PM (Electronically Signed)
== END 2019-05-15 19:41 | disposition home or self-care (01) ==
LOC: MW.ED 17:44
DX: S20.211A Contusion of right front wall of thorax, initial encounter (principal); W22.03XA Walked into furniture, initial encounter
CPT/HCPCS: 36415; 71045; 74177; 80053; 83690; 85025; 96360; 99284; J7040; Q9967

== ENCOUNTER 2020-08-06 11:31 | Emergency (ER) | payer MEDICAID ==
--- NOTE | 2020-08-06 12:16 | EDM.PDOC ---
ED HPI GENERAL MEDICAL PROBLEM - General Chief Complaint: General Stated Complaint: LT SIDE JAW SWOLLEN Time Seen by Provider: 08/06/20 11:35 - History of Present Illness INITIAL COMMENTS - FREE TEXT/NARRATIVE: History of present illness: []Patient presents with left lower jaw pain and dental pain that she woke up with today there is some facial swelling no trouble swallowing no fever no chills nothing seems to make it better or worse. Review of systems: As per history of present illness and below otherwise all systems reviewed and negative. Past medical history: As per history of present illness and as reviewed below otherwise noncontributory. Surgical history: As per history of present illness and as reviewed below otherwise noncontributory. Social history: No reported history of drug or alcohol abuse. Family history: As per history of present illness and as reviewed below otherwise noncontributory. Physical exam: HEENT: Atraumatic, normocephalic, pupils reactive, negative for conjunctival pallor or scleral icterus, mucous membranes moist, throat clear, neck supple, nontender, trachea midline. Generally poor and fractured dentition with multiple caries there is swelling lateral to the second premolar on the left no trismus Lungs: Clear to auscultation, breath sounds equal bilaterally, chest nontender. Heart: S1S2, regular, negative for clicks, rubs, or JVD. Abdomen: Soft, nondistended, nontender. Negative for masses or hepatosplenomegaly. Negative for costovertebral tenderness. Pelvis: Stable nontender. Genitourinary: Deferred. Rectal: Deferred. Extremities: Atraumatic, negative for cords or calf pain. Neurovascular unremarkable. Neuro: Awake, alert, oriented. Cranial nerves II through XII unremarkable. Cerebellum unremarkable. Motor and sensory unremarkable throughout. Exam nonfocal. Diagnostics: [] Therapeutics: [] Impression: Dental abscess [] Plan: Lazaro-Vee Marty naproxen follow-up with dentist [] Definitive disposition and diagnosis as appropriate pending reevaluation and rev iew of above. - Related Data Allergies Allergy/AdvReac Type Severity Reaction Status Date / Time morphine Allergy Itching Verified 08/06/20 12:19 Home Meds: Home Meds atorvaSTATin [Lipitor] 20 mg PO BEDTIME 10/24/16 [History] Aspirin 81 mg PO DAILY #100 tab.chew 04/16/17 [Rx] Levothyroxine 125 mcg PO ACBREAKFAST 04/16/17 [History] Ibuprofen [Motrin] 800 mg PO BIDM PRN #20 tab 05/15/19 [Rx] Naproxen [Naprosyn] 500 mg PO Q12HR #20 tab 08/06/20 [Rx] Penicillin V Potassium [Veetids] 500 mg PO Q6H #40 tab 08/06/20 [Rx] Past Medical History - Past Health History Medical/Surgical History: Denies Medical/Surgical History HEENT History: Reports: None Cardiovascular History: Reports: Hypertension Other Cardiovascular History: Heart Attack 2014 Respiratory History: Reports: None Gastrointestinal History: Reports: None Genitourinary History: Reports: None ICER HAND History: Reports: Musculoskeletal History: Reports: None Neurological History: Reports: None Psychiatric History: Reports: None Endocrine/Metabolic History: Reports: Hypothyroidism Hematologic History: Reports: None Oncologic (Cancer) History: Reports: None Dermatologic History: Reports: None - Infectious Disease History Infectious Disease History: Reports: Chicken Pox - Past Surgical History Female Surgical History: Reports: Hysterectomy Social & Family History - Family History Family Medical History: Noncontributory OBGYN: Reports: Oncologic: Reports: Cervix - Caffeine Use Caffeine Use: Reports: Coffee Other Caffeine Use: 3-4 cups/day ED ROS GENERAL - Review of Systems Review Of Systems: See Below ED EXAM, GENERAL - Physical Exam Exam: See Below Course - Vital Signs Last Recorded V/S: Last Vital Signs Temp 36.1 C 08/06/20 12:10 Pulse 76 08/06/20 12:10 Resp 16 08/06/20 12:10 BP 164/93 H 08/06/20 12:10 Pulse Ox 97 08/06/20 12:10 Departure - Departure Time of Disposition: 12:26 Disposition: Home, Self-Care 01 Condition: Good Clinical Impression: Dental abscess - Discharge Information *PRESCRIPTION DRUG MONITORING PROGRAM REVIEWED*: Not Applicable *COPY OF PRESCRIPTION DRUG MONITORING REPORT IN PATIENT ESTEFANIA: Not Applicable Prescriptions: Naproxen [Naprosyn] 500 mg PO Q12HR #20 tab Penicillin V Potassium [Veetids] 500 mg PO Q6H #40 tab Instructions: Dental Abscess Referrals: Juan Olivarez MD [Primary Care Provider] - Forms: ED Department Discharge Additional Instructions: The following information is given to patients seen in the emergency department who are being discharged to home. This information is to outline your options for follow-up care. We provide all patients seen in our emergency department with a follow-up referral. The need for follow-up, as well as the timing and circumstances, are variable depending upon the specifics of your emergency department visit. If you don't have a primary care physician on staff, we will provide you with a referral. We always advise you to contact your personal physician following an emergency department visit to inform them of the circumstance of the visit and for follow-up with them and/or the need for any referrals to a consulting specialist. The emergency department will also refer you to a specialist when appropriate. This referral assures that you have the opportunity for follow-up care with a sp ecialist. All of these measure are taken in an effort to provide you with optimal care, which includes your follow-up. Under all circumstances we always encourage you to contact your private physicia n who remains a resource for coordinating your care. When calling for follow-up care, please make the office aware that this follow-up is from your recent emergency room visit. If for any reason you are refused follow-up, please contact the [facility] Emergency Department at and asked to speak to the emergency department charge nurse. You need to follow-up with a dentist as soon as possible. Sepsis Event Note (ED) - Focused Exam Vital Signs: Vital Signs Temp Pulse Resp BP Pulse Ox 08/06/20 12:10 36.1 C 76 16 164/93 H 97
[2020-08-06 12:48] VITALS: BP 158/89; PULSE 61
== END 2020-08-06 12:43 | disposition home or self-care (01) ==
LOC: MW.ED 11:31
DX: K04.7 Periapical abscess without sinus (principal); K03.81 Cracked tooth; K02.9 Dental caries, unspecified; E03.9 Hypothyroidism, unspecified; I10 Essential (primary) hypertension; I25.2 Old myocardial infarction; Z88.5 Allergy status to narcotic agent; Z79.899 Other long term (current) drug therapy; Z79.82 Long term (current) use of aspirin
CPT/HCPCS: 99282

== ENCOUNTER 2020-11-15 21:07 | Emergency (ER) | payer MEDICAID ==
--- NOTE | 2020-11-15 21:33 | EDM.PDOC ---
<Beverley Catherine R - Last Filed: 11/15/20 21:40> ED HPI GENERAL MEDICAL PROBLEM - General Chief Complaint: Abdominal Pain Stated Complaint: EMS Time Seen by Provider: 11/15/20 21:10 Source of Information: Reports: Patient History Limitations: Reports: Intoxication - History of Present Illness INITIAL COMMENTS - FREE TEXT/NARRATIVE: Reporting hematuria since this afternoon. The patient admits to having several drinks this evening which limited the interview. She states that at least 2 times since mid afternoon she has noticed blood in her urine. Different times during the interview the patient mentioned chest pain, migraine, a bruise causing bleeding but later contradicted those statements. She initially told me she had no medical problems but when I ask her about her medications she admitted she has asthma and smokes. A review of the records indicates that she has a history of hypertension, dyslipidemia, hypothyroidism and chest pain. Her chest pain has been worked up several times with echocardiogram, stress test and nuclear medicine testing and she was diagnosed with atypical chest pain and angina. 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 Her son called the ambulance this evening when she called him and told him that she had bleeding and he associated it with a bruised lesion she has on her right lower abdomen. R abdomen Pain Score (Numeric/FACES): 6 Headache Pain Score (Numeric/FACES): 8 - Related Data Allergies Allergy/AdvReac Type Severity Reaction Status Date / Time morphine Allergy Itching Verified 11/15/20 21:19 Home Meds: Home Meds atorvaSTATin [Lipitor] 20 mg PO BEDTIME 10/24/16 [History] Aspirin 81 mg PO DAILY #100 tab.chew 04/16/17 [Rx] Levothyroxine 125 mcg PO ACBREAKFAST 04/16/17 [History] Albuterol [Proventil Neb Soln] 11/15/20 [History] Nitroglycerin [Nitrostat] 0.4 mg PO ASDIRECTED PRN 11/15/20 [History] amLODIPine [Norvasc] 11/15/20 [History] cephALEXin [Keflex] 500 mg PO TID #30 capsule 11/15/20 [Rx] Past Medical History - Past Health History Medical/Surgical History: Denies Medical/Surgical History HEENT History: Reports: None Cardiovascular History: Reports: Hypertension Other Cardiovascular History: Heart Attack 2014 Respiratory History: Reports: None Gastrointestinal History: Reports: None Genitourinary History: Reports: None 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: Musculoskeletal History: Reports: None Neurological History: Reports: None Psychiatric History: Reports: None Endocrine/Metabolic History: Reports: Hypothyroidism Hematologic History: Reports: None Immunologic History: Reports: None Oncologic (Cancer) History: Reports: None Dermatologic History: Reports: None - Infectious Disease History Infectious Disease History: Reports: Chicken Pox - Past Surgical History Female Surgical History: Reports: Hysterectomy Social & Family History - Family History Family Medical History: No Pertinent Family History OBGYN: Reports: Oncologic: Reports: Cervix - Caffeine Use Caffeine Use: Reports: Coffee Other Caffeine Use: 3-4 cups/day ED ROS GENERAL - Review of Systems Review Of Systems: Comprehensive ROS is negative, except as noted in HPI. ED EXAM, RENAL/ - Physical Exam Exam: See Below Exam Limited By: No Limitations General Appearance: Alert, No Apparent Distress Ears: Normal External Exam Nose: Normal Inspection Throat/Mouth: Normal Inspection Head: Atraumatic, Normocephalic Neck: Normal Inspection Respiratory/Chest: No Respiratory Distress, Lungs Clear, Normal Breath Sounds Cardiovascular: Normal Peripheral Pulses, Regular Rate, Rhythm, No Edema GI/Abdominal: Soft, Non-Tender, No Distention, Other (The right lower quadrant she has a bruise that has a very superficial underlying 1cm cystic-like mass under it) Back Exam: Normal Inspection Extremities: Normal Inspection Neurological: Alert, Oriented, Other (slightly confused due to self admitted alcohol intake) Psychiatric: Normal Affect, Normal Mood Skin Exam: Warm, Dry, Intact, Normal Color, No Rash Lymphatic: No Adenopathy Departure - Departure Disposition: Home, Self-Care 01 Clinical Impression: Urinary tract infection, Hematuria - Discharge Information Instructions: Urinary Tract Infection, Adult, Hematuria, Adult Referrals: PCP,None [Primary Care Provider] - Forms: ED Department Discharge Additional Instructions: You were seen and evaluated in the ER today secondary to blood in your urine. Your blood tests are all normal. Urine does reveal that you do have some white blood cells consistent with a urinary tract infection. He will be started on an antibiotic will be given the phone number for urology clinic for follow-up if your urine continues to have blood in it. [facility] - Urology [address] [place] [id number] The following information is given to patients seen in the emergency department who are being discharged to home. This information is to outline your options for follow-up care. We provide all patients seen in our emergency department with a follow-up referral. The need for follow-up, as well as the timing and circumstances, are variable depending upon the specifics of your emergency department visit. If you don't have a primary care physician on staff, we will provide you with a referral. We always advise you to contact your personal physician following an emergency department visit to inform them of the circumstance of the visit and for follow-up with them and/or the need for any referrals to a consulting specialist. The emergency department will also refer you to a specialist when appropriate. This referral assures that you have the opportunity for follow-up care with a specialist. All of these measure are taken in an effort to provide you with optimal care, which includes your follow-up. Under all circumstances we always encourage you to contact your private physician who remains a resource for coordinating your care. When calling for follow-up care, please make the office aware that this follow-up is from your recent emergency room visit. If for any reason you are refused follow-up, please contact the [facility] Emergency Department at and asked to speak to the emergency department charge nurse. [facility] - [facility] [address] [place] [address] [id number] [address] [id number] <Jurgen Bedolla - Last Filed: 11/15/20 22:26> ED HPI GENERAL MEDICAL PROBLEM - History of Present Illness INITIAL COMMENTS - FREE TEXT/NARRATIVE: Patient signed out to me. Patient seen and evaluated by me. Patient reports that she presents ER today secondary to blood in her urine. Patient denies any other symptomatology to me. Patient denies any recent fevers, shakes, chills, nausea, vomiting, diarrhea, dysuria, frequency, urgency, chest pain, shortness of breath, abdominal pain. Patient reports she does have a headache but not dorsally of her life. She reports that she gets frequent headaches that usually resolve with [id number] pain meds. Patient's labs are all within normal limits. Patient's UA does reveal WBCs. Patient be started on Macrobid and treated for UTI. Reassessment at the time of disposition demonstrates that the patient is in no acute distress. The patient has remained stable throughout the entire ED visit and is without objective evidence for acute process requiring urgent intervention or hospitalization. The patient is stable for discharge, counseling is provided as documented above, discussed symptomatic treatment and specific conditions for return. I have spoken with the patient/caregiver and discussed todays findings, in addition to providing specific details for the plan of care. Questions are answered and there is agreement with the plan. Constitutional: Patient is oriented to person, place, and time. Appears well- developed and well-nourished. No distress. HEENT: Moist mucous membranes Head: Normocephalic and atraumatic Eyes: Right eye exhibits no discharge. Left eye exhibits no discharge. No scleral icterus Neck: Normal range of motion. No tracheal deviation present. Cardiovascular: Normal rate and regular rhythm. Pulmonary: Effort normal, no respiratory distress. Abdominal: No distention Musculoskeletal: Normal range of motion Neurologic: Alert and oriented to person, place and time. Skin: [place], warm and dry. Psychiatric: Normal mood and affect. Behavior is normal. Judgment and thought content normal. Nursing note and vital signs have been reviewed Abd: Soft, nondistended, no rebound/guarding, no psoas or obturator signs, no tenderness at Mcberney's point, no Agarwal's sign. Pt does not present with an exam that would be consistent with an acute surgical abdomen at this time Course - Vital Signs Last Recorded V/S: Last Vital Signs Temp 96.2 F L 11/15/20 21:10 Pulse 74 11/15/20 21:10 Resp 18 11/15/20 21:10 BP 124/84 11/15/20 21:10 Pulse Ox 96 11/15/20 21:10 - Orders/Labs/Meds Labs: Laboratory Tests 11/15/20 11/15/20 11/15/20 Range/Units 21:30 21:45 21:45 WBC 10.03 (4.0-11.0) K/uL RBC 4.44 (4.30-5.90) M/uL Hgb 14.9 (12.0-16.0) g/dL Hct 44.2 (36.0-46.0) % MCV 99.5 H (80.0-98.0) fL MCH 33.6 H (27.0-32.0) pg MCHC 33.7 (31.0-37.0) g/dL RDW Std Deviation 51.2 (28.0-62.0) fl RDW Coeff of [place] 14 (11.0-15.0) % Plt Count 218 (150-400) K/uL MPV 10.50 (7.40-12.00) fL Neut % (Auto) 43.5 L (48.0-80.0) % Lymph % (Auto) 48.6 H (16.0-40.0) % [place] % (Auto) 6.8 (0.0-15.0) % Eos % (Auto) 0.8 (0.0-7.0) % Baso % (Auto) 0.3 (0.0-1.5) % Neut # (Auto) 4.4 (1.4-5.7) K/uL Lymph # (Auto) 4.9 H (0.6-2.4) K/uL [place] # (Auto) 0.7 (0.0-0.8) K/uL Eos # (Auto) 0.1 (0.0-0.7) K/uL Baso # (Auto) 0.0 (0.0-0.1) K/uL Nucleated RBC % 0.0 /100WBC Nucleated RBCs # 0 K/uL Sodium 138 (136-145) mmol/L Potassium 3.6 (3.5-5.1) mmol/L Chloride 102 (98-107) mmol/L Carbon Dioxide 20.3 L (21.0-32.0) mmol/L BUN 10 (7.0-18.0) mg/dL Creatinine 1.0 (0.6-1.0) mg/dL Est Cr Clr Drug Dosing 53.60 mL/min Estimated GFR (MDRD) 57.1 ml/min Glucose 92 (74-106) mg/dL Calcium 9.1 (8.5-10.1) mg/dL Total Bilirubin 0.4 (0.2-1.0) mg/dL AST 33 (15-37) IU/L ALT 32 (14-63) IU/L Alkaline Phosphatase 47 (46-116) U/L Total Protein 8.3 H (6.4-8.2) g/dL Albumin 4.5 (3.4-5.0) g/dL Globulin 3.8 (2.6-4.0) g/dL Albumin/Globulin Ratio 1.2 (0.9-1.6) Urine Color YELLOW Urine Appearance CLEAR Urine pH 6.0 (5.0-8.0) Ur Specific [place] <= 1.005 (1.001-1.035) Urine Protein NEGATIVE (NEGATIVE) mg/dL Urine Glucose (UA) NEGATIVE (NEGATIVE) mg/dL Urine Ketones NEGATIVE (NEGATIVE) mg/dL Urine Occult Blood TRACE-INTACT H (NEGATIVE) Urine Nitrite NEGATIVE (NEGATIVE) Urine Bilirubin NEGATIVE (NEGATIVE) Urine Urobilinogen 0.2 (<2.0) EU/dL Ur Leukocyte Esterase SMALL H (NEGATIVE) Urine RBC NONE SEEN (0-2/HPF) Urine WBC 5-7 (0-5/HPF) Ur Epithelial Cells OCCASIONAL (NONE-FEW) Urine Bacteria FEW (NEGATIVE) Urine Mucus LIGHT (NONE-MOD) Ethyl Alcohol 206 mg/dL Departure - Departure Time of Disposition: 22:24 Condition: Good Sepsis Event Note (ED) - Focused Exam Vital Signs: Vital Signs Temp Pulse Resp BP Pulse Ox 11/15/20 21:10 96.2 F L 74 18 124/84 96
[2020-11-15 22:15] LABS: CARBON DIOXIDE,CO2 20.3 mmol/L (21.0-32.0); POTASSIUM,K 3.6 mmol/L (3.5-5.1)
[2020-11-15] MEDS ORDERED: Cephalexin 500 MG Cap PO ONE (22:26)
[2020-11-15 22:40] VITALS: BP 108/78; PULSE 69
== END 2020-11-15 22:30 | disposition home or self-care (01) ==
LOC: MW.ED 21:07
DX: N39.0 Urinary tract infection, site not specified (principal); R31.9 Hematuria, unspecified; I10 Essential (primary) hypertension; E03.9 Hypothyroidism, unspecified; F10.129 Alcohol abuse with intoxication, unspecified; Y90.7 Blood alcohol level of 200-239 mg/100 ml; Z88.5 Allergy status to narcotic agent; Z79.899 Other long term (current) drug therapy; Z79.82 Long term (current) use of aspirin
CPT/HCPCS: 36415; 80053; 80307; 81001; 85025; 99283; A9270; 99282

== ENCOUNTER 2021-03-07 07:46 | Emergency (ER) | payer MEDICAID ==
--- NOTE | 2021-03-07 08:31 | EDM.PDOC ---
ED HPI GENERAL MEDICAL PROBLEM - General Time Seen by Provider: 03/07/21 07:51 Source of Information: Reports: Patient History Limitations: Reports: No Limitations - History of Present Illness INITIAL COMMENTS - FREE TEXT/NARRATIVE: 56-year-old female past medical history hemorrhoids presents for rectal bleeding and generalized abdominal pain. Patient notes that symptoms started yesterday. She is noticed bright red blood when having bowel movements and notes pain with wiping. She does note a history of hemorrhoids but states that she could not feel any. She notes mild nausea but denies vomiting. Denies constipation or diarrhea. Notes past surgical history of hysterectomy but no other abdominal surgeries. She has never had a colonoscopy. Buttock Pain Score (Numeric/FACES): 4 - Related Data Allergies Allergy/AdvReac Type Severity Reaction Status Date / Time morphine Allergy Itching Verified 03/07/21 08:30 Home Meds: Home Meds Aspirin 81 mg PO DAILY #100 tab.chew 04/16/17 [Rx] Levothyroxine 125 mcg PO ASDIRECTED 04/16/17 [History] Albuterol [Proventil Neb Soln] 1 puff INH ASDIRECTED 11/15/20 [History] amLODIPine [Norvasc] 5 mg PO DAILY 11/15/20 [History] MO/Pet,Wh/Phenylephrine/Shk Lv [Preparation H Oint] 57 gm RECTAL BID 7 Days #1 tube 03/07/21 [Rx] Past Medical History - Past Health History Medical/Surgical History: Denies Medical/Surgical History HEENT History: Reports: None Cardiovascular History: Reports: High Cholesterol, Hypertension Other Cardiovascular History: Heart Attack 2014 Respiratory History: Reports: None Gastrointestinal History: Reports: None Genitourinary History: Reports: None 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: Musculoskeletal History: Reports: None Neurological History: Reports: None Psychiatric History: Reports: None Endocrine/Metabolic History: Reports: Hypothyroidism Hematologic History: Reports: None Immunologic History: Reports: None Oncologic (Cancer) History: Reports: None Dermatologic History: Reports: None - Infectious Disease History Infectious Disease History: Reports: Chicken Pox, Measles, Mumps - Past Surgical History Female Surgical History: Reports: Hysterectomy Social & Family History - Family History Family Medical History: No Pertinent Family History OBGYN: Reports: Oncologic: Reports: Cervix - Caffeine Use Caffeine Use: Reports: Coffee Other Caffeine Use: 3-4 cups/day ED ROS GENERAL - Review of Systems Review Of Systems: Comprehensive ROS is negative, except as noted in HPI. ED EXAM, GENERAL - Physical Exam Exam: See Below Exam Limited By: No Limitations General Appearance: Alert, WD/WN, No Apparent Distress Throat/Mouth: Normal Voice, No Airway Compromise Head: Atraumatic, Normocephalic Neck: Normal Inspection Respiratory/Chest: No Respiratory Distress, Lungs Clear, Normal Breath Sounds, No Accessory Muscle Use Cardiovascular: Normal Peripheral Pulses, Regular Rate, Rhythm GI/Abdominal: Soft, Non-Tender, Other (external hemorrhoids without active bleeding, no internal hemorrhoids palpated, no stool to test guaiac) Extremities: Normal Inspection Neurological: Alert, Normal Gait Psychiatric: Normal Affect, Normal Mood Course - Vital Signs Last Recorded V/S: Last Vital Signs Temp 97.3 F 03/07/21 07:50 Pulse 66 03/07/21 08:53 Resp 16 03/07/21 08:53 BP 158/94 H 03/07/21 08:53 Pulse Ox 94 L 03/07/21 08:53 - Orders/Labs/Meds Labs: Laboratory Tests 03/07/21 03/07/21 Range/Units 08:45 08:45 WBC 4.88 (4.0-11.0) K/uL RBC 4.31 (4.30-5.90) M/uL Hgb 14.9 (12.0-16.0) g/dL Hct 43.7 (36.0-46.0) % MCV 101.4 H (80.0-98.0) fL MCH 34.6 H (27.0-32.0) pg MCHC 34.1 (31.0-37.0) g/dL RDW Std Deviation 54.6 (28.0-62.0) fl RDW Coeff of Garrison 15 (11.0-15.0) % Plt Count 228 (150-400) K/uL MPV 10.40 (7.40-12.00) fL Neut % (Auto) 37.7 L (48.0-80.0) % Lymph % (Auto) 56.4 H (16.0-40.0) % Owen % (Auto) 4.7 (0.0-15.0) % Eos % (Auto) 0.6 (0.0-7.0) % Baso % (Auto) 0.6 (0.0-1.5) % Neut # (Auto) 1.8 (1.4-5.7) K/uL Lymph # (Auto) 2.8 H (0.6-2.4) K/uL Owen # (Auto) 0.2 (0.0-0.8) K/uL Eos # (Auto) 0.0 (0.0-0.7) K/uL Baso # (Auto) 0.0 (0.0-0.1) K/uL Nucleated RBC % 0.0 /100WBC Nucleated RBCs # 0 K/uL Sodium 136 (136-145) mmol/L Potassium 3.7 (3.5-5.1) mmol/L Chloride 101 (98-107) mmol/L Carbon Dioxide 26.5 (21.0-32.0) mmol/L BUN 10 (7.0-18.0) mg/dL Creatinine 1.1 H (0.6-1.0) mg/dL Est Cr Clr Drug Dosing 48.14 mL/min Estimated GFR (MDRD) 51.0 ml/min Glucose 87 (74-106) mg/dL Calcium 8.7 (8.5-10.1) mg/dL Total Bilirubin 0.3 (0.2-1.0) mg/dL AST 30 (15-37) IU/L ALT 34 (14-63) IU/L Alkaline Phosphatase 48 (46-116) U/L Total Protein 8.2 (6.4-8.2) g/dL Albumin 4.3 (3.4-5.0) g/dL Globulin 3.9 (2.6-4.0) g/dL Albumin/Globulin Ratio 1.1 (0.9-1.6) - Re-Assessments/Exams Free Text/Narrative Re-Assessment/Exam: 03/07/21 08:24 Patient symptoms are likely secondary to external hemorrhoids. Will get basic labs to ensure no anemia or gross abnormalities on CMP. Had long discussion with patient about the importance of follow-up with a physician for colonoscopy as she has not had her screening colonoscopy and we cannot fully exclude diverticular bleed or colon cancer without a colonoscopy. Assuming labs are unremarkable we will treat for external hemorrhoids and have patient follow-up with general surgery. 03/07/21 09:41 Labs unremarkable. Will discharge patient with follow-up general surgery. Departure - Departure Time of Disposition: 09:41 Disposition: Home, Self-Care 01 Condition: Good Clinical Impression: Hemorrhoids Qualifiers: Hemorrhoid type: unspecified Qualified Code(s): K64.9 - Unspecified hemorrhoids - Discharge Information Prescriptions: MO/Pet,Wh/Phenylephrine/Shk Lv [Preparation H Oint] 57 gm RECTAL BID 7 Days #1 tube Instructions: Hemorrhoids Referrals: Juan Olivarez MD [Primary Care Provider] - Additional Instructions: Your physical exam is remarkable for external hemorrhoids. This is the most l ikely source of your bleeding. Your labs do not show any evidence of anemia. I have prescribed you a medication that you can use twice daily for the next week to help shrink the hemorrhoids and hopefully give you some symptomatic relief. In order to fully evaluate gastrointestinal bleeding you would need to have a colonoscopy. Information is provided below for our general surgery department and they can schedule you for a colonoscopy. You should really get a colonoscopy even if symptoms resolve with these medications as it is recommended that everyone get a screening colonoscopy at age 50 to rule out colon cancer. We cannot 100% say that the bleeding is due to external hemorrhoids without the colonoscopy. If you develop worsening pain, worsening bleeding, feeling faint or like you are about to pass out these can all be signs of significant blood loss and you are encouraged to come back to the emergency department for reassessment. General surgery follow-up (for colonoscopy): [facility] [address], [address] [place] [address] The following information is given to patients seen in the emergency department who are being discharged to home. This information is to outline your options for follow-up care. We provide all patients seen in our emergency department with a follow-up referral. The need for follow-up, as well as the timing and circumstances, are variable depending upon the specifics of your emergency department visit. If you don't have a primary care physician on staff, we will provide you with a referral. We always advise you to contact your personal physician following an emergency department visit to inform them of the circumstance of the visit and for follow-up with them and/or the need for any referrals to a consulting specialist. The emergency department will also refer you to a specialist when appropriate. This referral assures that you have the opportunity for follow-up care with a specialist. All of these measure are taken in an effort to provide you with optimal care, which includes your follow-up. Under all circumstances we always encourage you to contact your private physician who remains a resource for coordinating your care. When calling for follow-up care, please make the office aware that this follow-up is from your recent emergency room visit. If for any reason you are refused follow-up, please contact the [facility] Emergency Department at and asked to speak to the emergency department charge nurse. Please follow up with your primary care physician. If you do not have a primary care physician, see below: [facility] [address] [place] [address] [id number] [facility] [address] [place] [id number] [facility] [address] [place] [id number] Sepsis Event Note (ED) - Focused Exam Vital Signs: Vital Signs Temp Pulse Resp BP Pulse Ox 03/07/21 08:53 66 16 158/94 H 94 L 03/07/21 07:50 97.3 F 89 16 165/100 H 98
[2021-03-07 09:16] LABS: CARBON DIOXIDE,CO2 26.5 mmol/L (21.0-32.0); POTASSIUM,K 3.7 mmol/L (3.5-5.1)
[2021-03-07 09:49] VITALS: BP 160/91; PULSE 79
== END 2021-03-07 09:49 | disposition home or self-care (01) ==
LOC: MW.ED 07:46
DX: K64.4 Residual hemorrhoidal skin tags (principal); Z79.82 Long term (current) use of aspirin; Z79.899 Other long term (current) drug therapy; Z88.5 Allergy status to narcotic agent
CPT/HCPCS: 36415; 80053; 85025; 99282; 99284

== ENCOUNTER 2021-06-04 16:02 | Emergency (ER) | payer MEDICAID ==
[2021-06-04 16:13] VITALS: BP 179/100; PULSE 90
--- NOTE | 2021-06-04 16:19 | EDM.PDOC ---
ED HPI GENERAL MEDICAL PROBLEM - General Chief Complaint: General Stated Complaint: BRUISE ON SIDE Time Seen by Provider: 06/04/21 16:05 - History of Present Illness INITIAL COMMENTS - FREE TEXT/NARRATIVE: Patient is a 56-year-old female with a history of asthma and cardiac disease on aspirin who presents with a small left side subcutaneous hematoma. The patient does not recall any injury to the area but noticed it when she woke up this morning. It is not painful unless she touches it. There is no nausea or vomiting there is no severe abdominal pain no other symptoms. Patient has had similar things happen in the past but they were much smaller. Patient otherwise feels well. Symptoms without exacerbating relieving factors radiation or other associated symptoms. - Related Data Allergies Allergy/AdvReac Type Severity Reaction Status Date / Time morphine Allergy Itching Verified 06/04/21 16:16 Home Meds: Home Meds Aspirin 81 mg PO DAILY #100 tab.chew 04/16/17 [Rx] Levothyroxine 125 mcg PO ASDIRECTED 04/16/17 [History] Albuterol [Proventil Neb Soln] 1 puff INH ASDIRECTED 11/15/20 [History] amLODIPine [Norvasc] 5 mg PO DAILY 11/15/20 [History] MO/Pet,Wh/Phenylephrine/Shk Lv [Preparation H Oint] 57 gm RECTAL BID 7 Days #1 tube 03/07/21 [Rx] Past Medical History - Past Health History Medical/Surgical History: Denies Medical/Surgical History HEENT History: Reports: None Cardiovascular History: Reports: CAD, High Cholesterol, Hypertension, [place] Other Cardiovascular History: Heart Attack 2014 Respiratory History: Reports: None Gastrointestinal History: Reports: None Genitourinary History: Reports: None 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: Musculoskeletal History: Reports: None Neurological History: Reports: None Psychiatric History: Reports: None Endocrine/Metabolic History: Reports: Diabetes, Type II, Hypothyroidism Hematologic History: Reports: None Immunologic History: Reports: None Oncologic (Cancer) History: Reports: None Dermatologic History: Reports: None - Infectious Disease History Infectious Disease History: Reports: Chicken Pox, Measles, Mumps - Past Surgical History Head Surgeries/Procedures: Reports: None Cardiovascular Surgical History: Reports: None Female Surgical History: Reports: Hysterectomy Endocrine Surgical History: Reports: None Social & Family History - Family History Family Medical History: No Pertinent Family History OBGYN: Reports: Oncologic: Reports: Cervix - Caffeine Use Caffeine Use: Reports: Coffee Other Caffeine Use: 3-4 cups/day - Recreational Drug Use Recreational Drug Use: No ED ROS GENERAL - Review of Systems Review Of Systems: See Below Free Text/Narrative/Comment: General: No fever. Skin: Per HPI Respiratory: No shortness of breath. Cardiac: No chest pain. Gastrointestinal: No vomiting or abdominal pain. Musculoskeletal: No myalgias/arthralgias. Neurologic: No headache. ED EXAM, GENERAL - Physical Exam Exam: See Below Free Text/Narrative:: General Appearance: No acute distress, appears comfortable Skin: 2 x 8 cm contusion with small subcutaneous hematoma centered in the mid axillary line just above the ASIS hematoma is palpable in the subcutaneous space. No skin violation no warmth HEENT: Normocephalic/atraumatic, sclera anicteric, mucous membranes moist Neck: Normal range of motion Chest and Lungs: Bilateral breath sounds, clear to auscultation Cardiovascular: Regular rate and rhythm, no murmur Abdomen: Soft, non-tender Back: Normal Musculoskeletal: No edema or tenderness Neurologic: Awake, alert, no obvious deficits, moving all extremities Psychiatric: Appropriate, cooperative Course - Vital Signs Last Recorded V/S: Last Vital Signs Temp 97.5 F 06/04/21 16:12 Pulse 90 06/04/21 16:12 Resp 20 06/04/21 16:12 BP 179/100 H 06/04/21 16:12 Pulse Ox 95 06/04/21 16:12 Departure - Departure Time of Disposition: 16:17 Disposition: Home, Self-Care 01 Condition: Good Clinical Impression: Subcutaneous hematoma - Discharge Information *PRESCRIPTION DRUG MONITORING PROGRAM REVIEWED*: Not Applicable *COPY OF PRESCRIPTION DRUG MONITORING REPORT IN PATIENT ESTEFANIA: Not Applicable Instructions: Contusion Referrals: Juan Olivarez MD [Primary Care Provider] - Forms: ED Department Discharge Additional Instructions: You have a small hematoma on your side. This is a small collection of blood just under the skin. Your body will slowly absorb this over the next several days to couple weeks. You will likely notice it changing colors as it does so similar to someone with a black eye. I encourage you to apply ice for 20 minutes at a time on and off for the next 2 days. Please always have a barrier such as a tea towel between the ice and your skin to prevent your skin from freezing. Be sure not to leave the ice on for longer than 20 minutes and be sure to keep the ice off for at least 1 hour in between applications. If you develop severe abdominal pain vomiting fever or any other new symptoms that concern you please call your doctor or return to the ER. The following information is given to patients seen in the emergency department who are being discharged to home. This information is to outline your options for follow-up care. We provide all patients seen in our emergency department with a follow-up referral. The need for follow-up, as well as the timing and circumstances, are variable depending upon the specifics of your emergency department visit. If you don't have a primary care physician on staff, we will provide you with a referral. We always advise you to contact your personal physician following an emergency department visit to inform them of the circumstance of the visit and for follow-up with them and/or the need for any referrals to a consulting specialist. The emergency department will also refer you to a specialist when appropriate. This referral assures that you have the opportunity for follow-up care with a specialist. All of these measure are taken in an effort to provide you with optimal care, which includes your follow-up. Under all circumstances we always encourage you to contact your private physician who remains a resource for coordinating your care. When calling for follow-up care, please make the office aware that this follow-up is from your recent emergency room visit. If for any reason you are refused follow-up, please contact the [facility] Emergency Department at and asked to speak to the emergency department charge nurse. Sepsis Event Note (ED) - Evaluation Sepsis Screening Result: No Definite Risk - Focused Exam Vital Signs: Vital Signs Temp Pulse Resp BP Pulse Ox 06/04/21 16:12 97.5 F 90 20 179/100 H 95 - Assessment/Plan Assessment:: 56-year-old female presenting with left-sided soft tissue contusion with small underlying hematoma likely from unremembered trauma no sign of deeper injury. No abdominal pain no nausea or vomiting. Patient has mild hypertension but this is a known problem for her. She has no findings that would suggest acute blood loss anemia. Anticipatory guidance provided patient will follow up with a primary care doctor. Finding is not consistent with a retroperitoneal hematoma.
== END 2021-06-04 16:30 | disposition home or self-care (01) ==
LOC: MW.ED 16:02
DX: M79.81 Nontraumatic hematoma of soft tissue (principal); I25.10 Atherosclerotic heart disease of native coronary artery without angina pectoris; E78.00 Pure hypercholesterolemia, unspecified; I25.2 Old myocardial infarction; E11.9 Type 2 diabetes mellitus without complications; J45.909 Unspecified asthma, uncomplicated; E03.9 Hypothyroidism, unspecified; Z79.82 Long term (current) use of aspirin; Z79.899 Other long term (current) drug therapy; Z88.5 Allergy status to narcotic agent
CPT/HCPCS: 99282

== ENCOUNTER 2021-07-30 14:48 | Emergency (ER) | payer MEDICAID ==
[2021-07-30] MEDS ORDERED: Ketorolac 15 MG/ML SDV IM ONE (16:41)
--- NOTE | 2021-07-30 17:57 | CR ---
HISTORY: Cough, runny nose, diarrhea. TECHNIQUE: Portable frontal view the chest. COMPARISON: Chest x-ray 05/15/2019. FINDINGS: No airspace consolidation. No pleural effusion or pneumothorax. Pulmonary vasculature and cardiomediastinal silhouette are within normal limits. IMPRESSION: No cardiopulmonary abnormality. Dictated by Kevin Nicole MD @ 07/30/2021 5:56:[address] Kevin Nicole @ Jul 30 2021 5:56PM
--- NOTE | 2021-07-30 18:17 | EDM.PDOC ---
ED HPI GENERAL MEDICAL PROBLEM - General Chief Complaint: General Stated Complaint: BODY ACHES Time Seen by Provider: 07/30/21 16:17 - History of Present Illness INITIAL COMMENTS - FREE TEXT/NARRATIVE: CHIEF COMPLAINT(S): "Not feeling well" HISTORY OF PRESENT ILLNESS: This is a 56-year-old woman with a past medical history of hypothyroidism, hypertension and hyperlipidemia who comes to the emergency department with a chief complaint of "not feeling well." Patient states that for approximately 1 and half weeks now she has been experiencing runny nose, diarrhea, mild headache and feeling fatigued. She describes her headache as frontal not associated with any numbness, tingling or weakness. She denies any double vision, loss of vision. She states that she has not yet tried anything for the pain. She denies any shortness of breath or cough or fever. She states that she is currently not vaccinated. She denies any Covid exposures. He denies any other symptoms. REVIEW OF SYSTEMS: Constitutional: Positive for fatigue denies fever, chills. Eyes: Denies eye pain Ears, Nose, Mouth, & Throat: Positive for runny nose denies earache Cardiovascular: Denies chest pain Respiratory: Denies shortness of breath Gastrointestinal: Denies Nausea, vomiting, diarrhea, hematochezia. Genitourinary: Denies hematuria Skin:Denies a rash MSK: Denies joint pain Neurological: Positive for headache denies blurred vision Psychiatric: Denies depression PAST MEDICAL HISTORY: As per history of present illness and as reviewed below otherwise noncontributory. SURGICAL HISTORY: As per history of present illness and as reviewed below otherwise noncontributory. SOCIAL HISTORY: As per history of present illness and as reviewed below otherwise noncontributory. FAMILY HISTORY: As per history of present illness and as reviewed below otherwise noncontributory. EXAMINATION OF ORGAN SYSTEMS/BODY AREAS: Constitutional: Blood pressure was 119/89, heart rate 108, respiratory rate 18 with an oxygen saturation of 92% on room air. Oxygen saturation with good waveform does go to 9596% on room air. Temperature 35.9 temporally General: Well-appearing woman who is in no acute distress Psychiatric: Appropriate mood and affect. Eyes: No scleral icterus or conjunctival erythema ENMT: Moist mucous membranes. No pharyngeal erythema Cardiovascular: Regular, rate, and rhythm. No gallops, murmurs, or rubs. Bilateral upper extremity pulses symmetric and intact. No peripheral edema. No JVD. Respiratory: Lungs clear to auscultation bilaterally. No wheezes, rales, or rhonchi. Gastrointestinal: Soft, non-tender, non-distended. Normoactive bowel sounds Genitourinary: No suprapubic tenderness Musculoskeletal: Normal range of motion. Skin: No lesions or abrasions. Neurological: Alert, GCS 15 MEDICAL DECISION MAKING AND COURSE IN THE ED WITH INTERPRETATION/REVIEW OF DIAGNOSTIC STUDIES: This is a 56-year-old woman with a past medical history of hypertension and hypothyroidism who comes to the emergency department with 1-1/2 weeks of intermittent headache, runny nose and fatigue. This patient is unvaccinated and is uncertain if she has been exposed. However her symptoms can be consistent with Covid. We will obtain a Covid swab and obtain a chest x-ray. We will provide the patient with Toradol for the headache and reevaluate. The radiological images were viewed by myself along with reading the report from the radiologist. Chest x-ray does not reveal any acute cardiopulmonary process. Laboratory: Covid positive After imaging and lab I did discuss the results with the patient. At this time I did discuss with her and educate her about COVID-19. She was given strict return precautions. She was amenable to discharge and had no further questions DISPOSITION: The patient was discharged home in stable condition. The patient will follow up with primary care physician in 3 to 5 days CONDITION: Fair PROCEDURES: None FINAL IMPRESSION(S)/DIAGNOSES: 1. Acute COVID-19 infection Abilio Goodman M.D. Body Pain Score (Numeric/FACES): 6 - Related Data Allergies Allergy/AdvReac Type Severity Reaction Status Date / Time morphine Allergy Itching Verified 07/30/21 16:27 Home Meds: Home Meds Levothyroxine 125 mcg PO ASDIRECTED 04/16/17 [History] Past Medical History - Past Health History Medical/Surgical History: Denies Medical/Surgical History HEENT History: Reports: None Cardiovascular History: Reports: CAD, High Cholesterol, Hypertension, [place] Other Cardiovascular History: Heart Attack 2014 Respiratory History: Reports: None Gastrointestinal History: Reports: None Genitourinary History: Reports: None 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: Musculoskeletal History: Reports: None Neurological History: Reports: None Psychiatric History: Reports: None Endocrine/Metabolic History: Reports: Diabetes, Type II, Hypothyroidism Hematologic History: Reports: None Immunologic History: Reports: None Oncologic (Cancer) History: Reports: None Dermatologic History: Reports: None - Infectious Disease History Infectious Disease History: Reports: Chicken Pox, Measles, Mumps - Past Surgical History Head Surgeries/Procedures: Reports: None Cardiovascular Surgical History: Reports: None Female Surgical History: Reports: Hysterectomy Endocrine Surgical History: Reports: None Social & Family History - Family History Family Medical History: No Pertinent Family History OBGYN: Reports: Oncologic: Reports: Cervix - Tobacco Use Tobacco Use Status *Q: Never Tobacco User - Caffeine Use Caffeine Use: Reports: Coffee Other Caffeine Use: 3-4 cups/day - Recreational Drug Use Recreational Drug Use: No ED ROS GENERAL - Review of Systems Review Of Systems: See Below ED EXAM, GENERAL - Physical Exam Exam: See Below Course - Vital Signs Last Recorded V/S: Last Vital Signs Temp 35.8 C L 07/30/21 18:24 Pulse 85 07/30/21 18:24 Resp 16 07/30/21 18:24 BP 121/89 07/30/21 18:24 Pulse Ox 95 07/30/21 18:24 - Orders/Labs/Meds Labs: Laboratory Tests 07/30/21 Range/Units 16:45 SARS-CoV-2 RNA (ASIHA) POSITIVE H (NEGATIVE) Meds: Medications Discontinued Medications Generic Name Dose Route Start Last Admin Trade Name Freq PRN Reason Stop Dose Admin Ketorolac Tromethamine 15 mg 07/30/21 16:41 07/30/21 16:50 Ketorolac 15 Mg/Ml Sdv IM 07/30/21 16:42 15 mg ONETIME ONE Administration Departure - Departure Time of Disposition: 18:16 Disposition: Home, Self-Care 01 Condition: Fair Clinical Impression: COVID - Discharge Information *PRESCRIPTION DRUG MONITORING PROGRAM REVIEWED*: No *COPY OF PRESCRIPTION DRUG MONITORING REPORT IN PATIENT ESTEFANIA: No Instructions: 10 Things You Can Do to Manage Your COVID-19 Symptoms at Home - CDC (06/01/2020), COVID-19: How to Protect Yourself and Others - [facility] Referrals: Juan Olivarez MD [Primary Care Provider] - Forms: ED Department Discharge Additional Instructions: Your evaluated today on an emergent basis. Your vitals were normal and your oxygen saturation was 96%. As discussed your x-ray was normal and you did test positive for Covid. At this time we do recommend a 10-day quarantine. As discussed use Tylenol and Motrin for body aches and pain relief. Please use honey with lemon water or tea for cough. You should take acetaminophen 500-1000 mg every 6 hours as needed for fever and muscle aches. Please drink plenty of fluids and get plenty of rest over the next several days. We would recommend that she get a pulse oximeter from the pharmacy to keep an eye on your oxygen level. If your oxygen level drops below 91%, you should return to the ED for evaluation. You should return to the ER sooner if you start having any symptoms of shortness of breath or any other new or concerning symptoms. 1. Your COVID-19 screening is positive. That means you do have the coronavirus and you are considered contagious. Your vital signs and oxygen saturation are well enough that you were able to monitor your symptoms at home. Continue to monitor for trouble breathing, new confusion or inability to arouse, bluish lips or face or any of the other symptoms we discussed -if this occurs please return to the emergency room. 2. Please self quarantine over the next 10 days. Inform any persons that you have been in contact with since you started becoming symptomatic that you have tested positive; they should be made aware and take the appropriate steps as needed. 3. May alternate Tylenol and ibuprofen as needed for pain and fever management. 4. The [facility] department will be calling you and following up with you. The [place] COVID 19 Hotline phone number , They are open Saturday - Sat 7am - 7pm. Follow up with your primary care provider for re-evaluation and re-testing after the 10 day quarantine and discuss when you should be seen. [facility] [address] [place] [id number] [facility] [address] [place] [id number] The patient is informed of any results of their evaluation and diagnostic workup and all questions are answered. They are given discharge instructions and return precautions. The patient is stable for discharge. The patient states they understand and agree with the plan and that they will return if their symptoms get worse or if they have any new concerns. The following information is given to patients seen in the emergency department who are being discharged to home. This information is to outline your options for follow-up care. We provide all patients seen in our emergency department with a follow-up referral. The need for follow-up, as well as the timing and circumstances, are variable depending upon the specifics of your emergency department visit. If you don't have a primary care physician on staff, we will provide you with a referral. We always advise you to contact your personal physician following an emergency department visit to inform them of the circumstance of the visit and for follow-up with them and/or the need for any referrals to a consulting specialist. The emergency department will also refer you to a specialist when appropriate. This referral assures that you have the opportunity for follow-up care with a specialist. All of these measure are taken in an effort to provide you with optimal care, which includes your follow-up. Under all circumstances we always encourage you to contact your private physician who remains a resource for coordinating your care. When calling for follow-up care, please make the office aware that this follow-up is from your recent emergency room visit. If for any reason you are refused follow-up, please contact the [facility] Emergency Department at and asked to speak to the emergency department charge nurse. Sepsis Event Note (ED) - Evaluation Sepsis Screening Result: No Definite Risk
[2021-07-30 18:25] VITALS: BP 121/89; PULSE 85
== END 2021-07-30 18:26 | disposition home or self-care (01) ==
LOC: MW.ED 14:48
DX: U07.1 COVID-19 (principal); I25.10 Atherosclerotic heart disease of native coronary artery without angina pectoris; E78.00 Pure hypercholesterolemia, unspecified; I10 Essential (primary) hypertension; I25.2 Old myocardial infarction; E11.9 Type 2 diabetes mellitus without complications; E03.9 Hypothyroidism, unspecified; Z88.5 Allergy status to narcotic agent; Z79.899 Other long term (current) drug therapy
CPT/HCPCS: 71045; 87635; 96372; 99284; J1885; 99283; U0002

== ENCOUNTER 2021-08-23 20:30 | Emergency (ER) | payer MEDICAID ==
[2021-08-23] MEDS ORDERED: Ketorolac 30 MG/ML SDV IM STA (21:05)
--- NOTE | 2021-08-23 21:09 | EDM.PDOC ---
ED HPI GENERAL MEDICAL PROBLEM - General Chief Complaint: General Stated Complaint: BROKEN RIB Time Seen by Provider: 08/23/21 20:44 Source of Information: Reports: Patient History Limitations: Reports: No Limitations - History of Present Illness INITIAL COMMENTS - FREE TEXT/NARRATIVE: Patient is a 56-year-old female who presents today for right-sided rib pain and vaginal bleeding. Patient that she was on toilet when she fell off and landed on her ribs. She states this is earlier pain that radiated to some Tylenol Motrin no relief at home. Moving makes the pain worse but she still able to breathe without issue. She denies any other issues with the rib pain. States she had hysterectomy a few years ago but today she has some profuse bleeding from the vaginal area. The bleeding has slowed down she does not need a pad right now. She not had any sex or any intercourse that could have caused this. Right Trunk Pain Score (Numeric/FACES): 9 - Related Data Allergies Allergy/AdvReac Type Severity Reaction Status Date / Time morphine Allergy Itching Verified 07/30/21 16:27 Home Meds: Home Meds Levothyroxine 125 mcg PO ASDIRECTED 04/16/17 [History] Past Medical History - Past Health History Medical/Surgical History: Denies Medical/Surgical History HEENT History: Reports: None Cardiovascular History: Reports: CAD, High Cholesterol, Hypertension, [place] Other Cardiovascular History: Heart Attack 2014 Respiratory History: Reports: None Gastrointestinal History: Reports: None Genitourinary History: Reports: None SNIPPER History: Reports: Musculoskeletal History: Reports: None Neurological History: Reports: None Psychiatric History: Reports: None Endocrine/Metabolic History: Reports: Diabetes, Type II, Hypothyroidism Hematologic History: Reports: None Immunologic History: Reports: None Oncologic (Cancer) History: Reports: None Dermatologic History: Reports: None - Infectious Disease History Infectious Disease History: Reports: Chicken Pox, Measles, Mumps - Past Surgical History Head Surgeries/Procedures: Reports: None Cardiovascular Surgical History: Reports: None Female Surgical History: Reports: Hysterectomy Endocrine Surgical History: Reports: None Social & Family History - Family History Family Medical History: No Pertinent Family History OBGYN: Reports: Oncologic: Reports: Cervix - Caffeine Use Caffeine Use: Reports: Coffee Other Caffeine Use: 3-4 cups/day - Recreational Drug Use Recreational Drug Use: No ED ROS GENERAL - Review of Systems Review Of Systems: See Below Constitutional: Reports: No Symptoms HEENT: Reports: No Symptoms Respiratory: Reports: No Symptoms, Other (Rib pain) Cardiovascular: Reports: No Symptoms Endocrine: Reports: No Symptoms GI/Abdominal: Reports: No Symptoms : Reports: No Symptoms, Irregular Menses Musculoskeletal: Reports: No Symptoms Skin: Reports: No Symptoms Neurological: Reports: No Symptoms Psychiatric: Reports: No Symptoms Hematologic/Lymphatic: Reports: No Symptoms Immunologic: Reports: No Symptoms ED EXAM, GENERAL - Physical Exam Exam: See Below Exam Limited By: No Limitations General Appearance: Alert, WD/WN, No Apparent Distress Nose: Normal Inspection Throat/Mouth: Normal Inspection Head: Atraumatic, Normocephalic Neck: Normal Inspection Respiratory/Chest: No Respiratory Distress, Lungs Clear, Normal Breath Sounds, No Accessory Muscle Use. No: Chest Non-Tender Cardiovascular: Normal Peripheral Pulses, Regular Rate, Rhythm GI/Abdominal: Normal Bowel Sounds, Soft, Non-Tender (Female) Exam: Normal External Exam, Normal Speculum Exam. No: Vaginal Bleeding, Vaginal Discharge, Vaginal Lesions Extremities: Normal Inspection, Normal Range of Motion, Non-Tender Neurological: Alert, Oriented, Normal Cognition, Normal Gait Psychiatric: Normal Affect Course - Vital Signs Last Recorded V/S: Last Vital Signs Temp 96.8 F L 08/23/21 20:42 Pulse 86 08/23/21 20:42 Resp 19 08/23/21 20:42 BP 121/80 08/23/21 20:42 Pulse Ox - Orders/Labs/Meds Orders: Active Orders 24 hr Category Date Time Status UA W/GENET RFLX IF INDICATED [URIN] Stat Lab 08/23/21 21:05 Ordered Labs: Laboratory Tests 08/23/21 08/23/21 08/23/21 Range/Units 21:56 21:56 21:56 WBC 9.11 (4.0-11.0) K/uL RBC 4.08 L (4.30-5.90) M/uL Hgb 13.1 (12.0-16.0) g/dL Hct 38.7 (36.0-46.0) % MCV 94.9 (80.0-98.0) fL MCH 32.1 H (27.0-32.0) pg MCHC 33.9 (31.0-37.0) g/dL RDW Std Deviation 45.9 (28.0-62.0) fl RDW Coeff of Garrison 13 (11.0-15.0) % Plt Count 237 (150-400) K/uL MPV 10.30 (7.40-12.00) fL Neut % (Auto) 42.0 L (48.0-80.0) % Lymph % (Auto) 49.6 H (16.0-40.0) % Custer % (Auto) 7.0 (0.0-15.0) % Eos % (Auto) 1.2 (0.0-7.0) % Baso % (Auto) 0.2 (0.0-1.5) % Neut # (Auto) 3.8 (1.4-5.7) K/uL Lymph # (Auto) 4.5 H (0.6-2.4) K/uL Custer # (Auto) 0.6 (0.0-0.8) K/uL Eos # (Auto) 0.1 (0.0-0.7) K/uL Baso # (Auto) 0.0 (0.0-0.1) K/uL Nucleated RBC % 0.0 /100WBC Nucleated RBCs # 0 K/uL INR 0.90 APTT 25.5 (18.6-31.3) SEC Sodium 132 L (136-145) mmol/L Potassium 4.2 (3.5-5.1) mmol/L Chloride 96 L (98-107) mmol/L Carbon Dioxide 22.0 (21.0-32.0) mmol/L BUN 11 (7.0-18.0) mg/dL Creatinine 0.8 (0.6-1.0) mg/dL Est Cr Clr Drug Dosing 66.19 mL/min Estimated GFR (MDRD) > 60.0 ml/min Glucose 109 H (74-106) mg/dL Calcium 8.7 (8.5-10.1) mg/dL Total Bilirubin 0.3 (0.2-1.0) mg/dL AST 18 (15-37) IU/L ALT 25 (14-63) IU/L Alkaline Phosphatase 59 (46-116) U/L Total Protein 7.9 (6.4-8.2) g/dL Albumin 3.8 (3.4-5.0) g/dL Globulin 4.1 H (2.6-4.0) g/dL Albumin/Globulin Ratio 0.9 (0.9-1.6) Meds: Medications Discontinued Medications Generic Name Dose Route Start Last Admin Trade Name Sagrario PRN Reason Stop Dose Admin Ketorolac Tromethamine 30 mg 08/23/21 21:05 08/23/21 21:59 Ketorolac 30 Mg/Ml Sdv IM 08/23/21 21:06 30 mg NOW STA Administration - Re-Assessments/Exams Free Text/Narrative Re-Assessment/Exam: 08/23/21 22:47 Patient hemoglobin is on again on vaginal exam patient had no signs of bleeding. Patient is not give any urine after we asked multiple times. Patient wants to go home if she starts pain in her wrist. Patient x-rays not show any rib fractures patient is satting 100 on room air looks well. Departure - Departure Time of Disposition: 22:47 Disposition: Home, Self-Care 01 Condition: Good Clinical Impression: Rib pain on right side, Post-menopausal bleeding - Discharge Information *PRESCRIPTION DRUG MONITORING PROGRAM REVIEWED*: Not Applicable *COPY OF PRESCRIPTION DRUG MONITORING REPORT IN PATIENT ESTEFANIA: Not Applicable Instructions: Postmenopausal Bleeding Referrals: Juan Olivarez MD [Primary Care Provider] - Forms: ED Department Discharge Additional Instructions: The following information is given to patients seen in the emergency department who are being discharged to home. This information is to outline your options for follow-up care. We provide all patients seen in our emergency department w ith a follow-up referral. The need for follow-up, as well as the timing and circumstances, are variable depending upon the specifics of your emergency department visit. If you don't have a primary care physician on staff, we will provide you with a referral. We always advise you to contact your personal physician following an emergency department visit to inform them of the circumstance of the visit and for follow-up with them and/or the need for any referrals to a consulting specialist. The emergency department will also refer you to a specialist when appropriate. This referral assures that you have the opportunity for follow-up care with a specialist. All of these measure are taken in an effort to provide you with optimal care, which includes your follow-up. Under all circumstances we always encourage you to contact your private physician who remains a resource for coordinating your care. When calling for follow-up care, please make the office aware that this follow-up is from your recent emergency room visit. If for any reason you are refused follow-up, please contact the [facility] Emergency Department at and asked to speak to the emergency department charge nurse. Please follow up with your primary care physician. If you do not have a primary care physician, see below: [facility] [address] [place] [id number] [facility] [address] [place] [address] Seen today for rib pain we did x-rays not show any fractures you most likely have some bruising there continue to take Tylenol Motrin as needed. We also did a pelvic exam we did not see any signs of bleeding. Your hemoglobin level was normal as well. If you continue to have issues please follow-up with [employer] with your primary care physician. Sepsis Event Note (ED) - Focused Exam Vital Signs: Vital Signs Temp Pulse Resp BP 08/23/21 20:42 96.8 F L 86 19 121/80 - My Orders Last 24 Hours: My Active Orders 08/23/21 21:05 UA W/GENET RFLX IF INDICATED [URIN] Stat - Assessment/Plan Last 24 Hours: My Active Orders 08/23/21 21:05 UA W/GENET RFLX IF INDICATED [URIN] Stat Plan: Patient is a 56-year-old female who presents today for right-sided rib pain after fall off the toilet and vaginal bleeding. Will obtain x-rays of the ribs obtain basic labs and do a pelvic exam.
--- NOTE | 2021-08-23 22:19 | CR ---
INDICATION: Pain after fall TECHNIQUE: Chest and three views right ribs COMPARISON: Chest radiograph July 30, 2021 FINDINGS: Cardiovascular and mediastinum: Heart size and vasculature are normal in caliber and appearance. Mediastinum is within normal limits. Lungs and pleural spaces: Lungs are clear. No sign of infiltrate or mass. No sign of pleural effusion. No pneumothorax. Bones and soft tissues: Detailed oblique images of the right ribs demonstrate no fractures or bone lesions. IMPRESSION: Unremarkable chest and right ribs. Dictated by Pilar Prakash MD @ 08/23/2021 10:17:21 PM (Electronically Signed)
[2021-08-23 22:41] LABS: BLOOD UREA NITROGEN,BUN 11 mg/dL (7.0-18.0); CHLORIDE,CL 96 mmol/L (98-107); GLUCOSE RANDOM 109 mg/dL (74-106); POTASSIUM,K 4.2 mmol/L (3.5-5.1); SODIUM,NA 132 mmol/L (136-145)
[2021-08-23 22:59] VITALS: BP 128/84; PULSE 83
== END 2021-08-23 22:59 | disposition home or self-care (01) ==
LOC: MW.ED 20:30
DX: R07.81 Pleurodynia (principal); N95.0 Postmenopausal bleeding; I25.10 Atherosclerotic heart disease of native coronary artery without angina pectoris; I10 Essential (primary) hypertension; I25.2 Old myocardial infarction; E11.9 Type 2 diabetes mellitus without complications; E03.9 Hypothyroidism, unspecified; Z88.5 Allergy status to narcotic agent
CPT/HCPCS: 36415; 71101; 80053; 85025; 85610; 85730; 96372; 99284; J1885

== ENCOUNTER 2022-04-05 21:42 | Emergency (ER) | payer BC, MEDICAID ==
[2022-04-05] MEDS ORDERED: fentaNYL 50 MCG/ML SDV IVPUSH ONE (22:03)
[2022-04-05] MEDS ORDERED: Ondansetron 4 MG/2 ML SDV IVPUSH ONE (22:03)
[2022-04-05] MEDS ORDERED: Sodium Chloride 0.9% 1,000 ML IV ONE (22:03)
[2022-04-05 23:40] LABS: BLOOD UREA NITROGEN,BUN 10 mg/dL (7.0-18.0); CARBON DIOXIDE,CO2 21.3 mmol/L (21.0-32.0); CHLORIDE,CL 99 mmol/L (98-107); GLUCOSE RANDOM 105 mg/dL (74-106); POTASSIUM,K 3.8 mmol/L (3.5-5.1); SODIUM,NA 134 mmol/L (136-145)
[2022-04-06] MEDS ORDERED: Ketorolac 30 MG/ML SDV IVPUSH ONE (00:04)
[2022-04-06 02:15] VITALS: BP 131/88; PULSE 87
== END 2022-04-06 01:45 ==
LOC: MW.ED 21:42
DX: F10.920 Alcohol use, unspecified with intoxication, uncomplicated (principal); I25.10 Atherosclerotic heart disease of native coronary artery without angina pectoris; I25.2 Old myocardial infarction; I10 Essential (primary) hypertension; E11.9 Type 2 diabetes mellitus without complications; Z90.710 Acquired absence of both cervix and uterus; Z88.6 Allergy status to analgesic agent; W19.XXXA Unspecified fall, initial encounter
CPT/HCPCS: 36415; 70450; 71045; 72125; 72192; 73030; 73502; 80053; 80305; 80307; 81001; 82550; 84484; 85025; 93005; 96374; 96375; 99285; J1885; J2405; J3010; J7030

== ENCOUNTER 2025-11-04 22:57 | Emergency (ER) | payer SELFPAY ==
[2025-11-04] MEDS ORDERED: Sodium Chloride 0.9% 10 ML Syringe FLUSH PRN (22:58)
[2025-11-04] MEDS ORDERED: Sodium Chloride 0.9% 2.5 ML Syringe FLUSH PRN (22:58)
[2025-11-04 23:09] VITALS: PULSE 67
[2025-11-04 23:13] LABS: BASOPHILS ABSOLUTE AUTO 0.04 K/uL (0.00-0.20); BASOPHILS PERCENT AUTO 0.6 % (0.0-1.0); EOSINOPHILS ABSOLUTE AUTO 0.05 K/uL (0.00-0.45); EOSINOPHILS PERCENT AUTO 0.7 % (0.0-6.0); IMMATURE GRAN ABSOLUTE AUTO 0.01 K/uL (0.00-0.05); IMMATURE GRAN PERCENT AUTO 0.1 % (0.0-0.4); LYMPHOCYTES ABSOLUTE AUTO 4.25 K/uL (1.00-4.80); LYMPHOCYTES PERCENT AUTO 62.7 % (24.0-44.0); MEAN PLATELET VOLUME 9.7 fL (9.4-12.3); MONOCYTES ABSOLUTE AUTO 0.43 K/uL (0.00-0.80); MONOCYTES PERCENT AUTO 6.3 % (0.0-8.0); NEUTROPHILS ABSOLUTE AUTO 2.00 K/uL (1.80-7.70); NEUTROPHILS PERCENT AUTO 29.6 % (41.0-71.0); NRBC ABSOLUTE 0.00 K/uL (0.00-0.02); NRBC PERCENT 0.0 /100WBC (0.0-0.2); PLATELET COUNT,PLT 222 K/uL (150-400); RED BLOOD CELL COUNT 3.98 M/uL (4.10-5.30); WHITE BLOOD CELL COUNT,WBC 6.78 K/uL (3.9-11.3)
[2025-11-04 23:40] LABS: A/G RATIO 1.1 (0.9-1.6); ASPARTATE AMNIOTRANSFERASE,AST 31.0 IU/L (15-37); BILIRUBIN TOTAL 0.3 mg/dL (0.2-1.0); BLOOD UREA NITROGEN,BUN 12.0 mg/dL (7.0-18.0); CARBON DIOXIDE,CO2 26.4 mmol/L (21.0-32.0); CHLORIDE,CL 100.0 mmol/L (98-107); CREATININE 0.8 mg/dL (0.6-1.0); EST CRCL DRUG DOSING (CG) 62.96 mL/min; ETHANOL BLOOD MEDICAL 193.0 mg/dL; GLUCOSE RANDOM 101.0 mg/dL (74-106); POTASSIUM,K 3.6 mmol/L (3.5-5.1); PROTEIN TOTAL,TP 7.7 g/dL (6.4-8.2); SODIUM,NA 137.0 mmol/L (136-145)
[2025-11-04 23:41] LABS: ESTIMATED GFR 83.0 mL/min (>60)
[2025-11-04 23:44] LABS: INR 0.97 (0.86-1.11); PTT,PARTIAL THROMBOPLSTIN TIME 26.2 SEC (23.9-30.7)
[2025-11-04 23:51] LABS: CHOLESTEROL HDL 91 mg/dL (40-60); CHOLESTEROL LDL CALCULATED 41 mg/dL (60-180); CHOLESTEROL TOTAL 178 mg/dL (50-200); PRO B-TYPE NATRIUR PEPT,BNPPRO 78 pg/mL (0-125); VLDL CHOLESTEROL 46 mg/dL (5-55)
[2025-11-04 23:55] LABS: ALANINE AMINOTRANSFERASE,ALT 36.0 IU/L (14-63)
[2025-11-04] MEDS: Iopamidol 755 MG/ML 500 ML Multipack Bottle IVPUSH STA (23:59)
[2025-11-05] MEDS: Tenecteplase 25 MG KIT IVPUSH ONE (00:18)
[2025-11-05 00:40] LABS: APPEARANCE,URINE CLEAR; GLUCOSE,URINE NEGATIVE (NEGATIVE); OCCULT BLOOD,URINE NEGATIVE (NEGATIVE)
[2025-11-05 00:49] LABS: AMPHETAMINES SCREEN, URINE NEGATIVE (CUTOFF=500); BUPRENORPHINE SCREEN,URINE NEGATIVE (CUTOFF=10); METHADONE SCREEN, URINE NEGATIVE (CUTOFF=200); METHAMPHETAMINES SCREEN, URINE NEGATIVE (CUTOFF=500); OXYCODONE SCREEN,URINE NEGATIVE (CUT0FF=100); PCP SCREEN,URINE NEGATIVE (CUTOFF=25); THC SCREEN,URINE 20 NG/ML NEGATIVE (CUTOFF=50)
[2025-11-05 07:27] VITALS: BP 114/74
== END 2025-11-05 02:16 ==
LOC: MW.ED 22:57
DX: I10 Essential (primary) hypertension (principal); I25.2 Old myocardial infarction; I25.10 Atherosclerotic heart disease of native coronary artery without angina pectoris; E78.00 Pure hypercholesterolemia, unspecified; E11.9 Type 2 diabetes mellitus without complications; E03.9 Hypothyroidism, unspecified; Z88.5 Allergy status to narcotic agent
CPT/HCPCS: 36415; 37195; 70450; 70486; 70496; 70498; 71260; 72125; 74177; 80053; 80061; 80305; 80307; 81003; 83036; 83880; 84484; 85025; 85610; 85730; 93005; 96360; 96361; 99285; A9270; J3101; J7030; Q9967; 93010